=== PATIENT | female | born 1985 | race Caucasian/White ===

== ENCOUNTER 2022-10-16 15:24 | Observation (INO) ==
[2022-10-16 16:19] LABS: Basophils # (auto) 0.04 K/uL (0-0.2); Basophils % (auto) 0.5 %; Eosinophils # (auto) 0.16 K/uL (0-0.50); Eosinophils % (auto) 2.2 %; Hematocrit (blood only) 34.5 % (34.1-44.9); Hemoglobin 12.2 g/dl (12.0-16.0); Immature Granulocytes # (auto) 0.02 K/uL (0.00-0.02); Immature Granulocytes % (auto) 0.3 %; Lymphocytes # (auto) 2.05 K/uL (1.2-3.4); Lymphocytes % (auto) 28.1 %; Mean Corpuscular Hemoglobin 29.6 pg (25.0-34.0); Mean Corpuscular Hgb Conc 35.4 g/dL (32.0-36.0); Mean Corpuscular Volume 83.7 fL (80.0-100.0); Mean Platelet Volume 9.9 fL (9.4-12.3); Monocytes # (auto) 0.26 K/uL (0.24-0.82); Monocytes % (auto) 3.6 %; Neutrophils # (auto) 4.77 K/uL (1.4-6.5); Neutrophils % (auto) 65.3 %; Platelet Count 270 K/uL (130-400); RDW Coefficient of Variation 11.9 % (11.5-14.5); RDW Standard Deviation 35.8 fL (36.4-46.3); Red Blood Count 4.12 M/uL (3.93-5.22)
[2022-10-16] MEDS ORDERED: KETOROLAC TROMETHAMINE 15 MG/ML VIAL IV ONE (16:19)
[2022-10-16] MEDS ORDERED: SODIUM CHLORIDE 0.9% 1000ML 2,000 ML IV ONE (16:19)
--- NOTE | 2022-10-16 16:24 | Emergency Department Note ---
Impression & Plan Chest pain, Elevated troponin, Abnormal ECG ED Provider Note NAME: BEL RIVERS AGE: 37 SEX: F : 1985 ARRIVES VIA: Walk-In INFORMANT: Patient ED PROVIDER(S): Bo Kaufman DO CHIEF COMPLAINT: Chest pain HPI: Patient is a 37-year-old female who presents the ER for chest pain which started about an hour and a half ago. She describes as midsternal and goes through to the back. She does have some arm pain. No shortness of breath. No belly pain, nausea, vomiting, or diarrhea. No dysuria, urgency, or frequency. No other exacerbating or remitting factors. She notes a feeling of fullness and sharp stabbing pressure. Does not change with twisting turning bending or eating or drinking. No other exacerbating or remitting factors. Patient denies diabetes, hypertension, hyperlipidemia, CAD, history of sudden at a young age, and smoking. Patient denies swelling of calves, recent trips, history of immobilization or recent surgery, prior history of DVT, hemoptysis, history of malignancy, or control/estrogen use. ROS: See above HPI for pertinent positives & negatives. A total of 10 systems reviewed and were otherwise negative. PAST MEDICAL HISTORY:See Below PAST SURGICAL HISTORY:See Below FAMILY HISTORY:See Below SOCIAL HISTORY:See Below HOME MEDICATIONS:See Below ALLERGIES:See Below VITALS:See Below PHYSICAL EXAMINATION: GENERAL: Sitting up in bed, alert, well appearing, well nourished, no distress, non-toxic EYE EXAM: normal conjunctiva. PERRL and EOM's grossly intact. OROPHARYNX: no exudate, no erythema, lips, buccal mucosa, and tongue normal and mucous membranes are moist NECK: supple, no nuchal rigidity, no adenopathy, non-tender LUNGS: Clear to auscultation. Normal chest wall mechanics HEART: no murmurs, S1 normal and S2 normal ABDOMEN: abdomen soft, non-tender, normo-active bowel sounds, no masses, no keerthi ound or guarding. BACK: Back is symmetrical on inspection and there is no deformity, no midline tenderness, no CVA tenderness. SKIN: no rashes and no bruising UPPER EXTREMITIES: upper extremities are grossly normal. Radial pulses are equal bilateral LOWER EXTREMITIES: No pitting edema. Calves are equal bilateral NEURO EXAM: Normal sensorium, cranial nerves II-XII grossly intact, normal speech, no gross weakness of arms, no gross weakness of legs. MEDICAL DECISION MAKING: Patient is a 37-year-old female who presents ER for above-stated complaint. IV was established blood work was obtained. Labs show no significant leukocytosis or anemia. Sed rate was normal. INR unremarkable. D-dimer was negative. BMP with mild hypokalemia 3.2. BMP with LFTs bilirubin was unremarkable. Troponin was elevated at 44. CRP negative. Viral panel was negative. EKG shows ST wave changes. Question if this is a myopericarditis but cannot be certain. She has no other cardiac risk factors with exception of a family member having an DE in his 50s which was her father. Patient was pain-free following given Toradol and then had some left shoulder pain. Attempted nitro without change. Patient was admitted to [facility] for further evaluation. We will hold on heparin at this time as I do not feel that this is consistent with ACS/with her age, risk factors and resolution of the pain at this point. Discussed with Pt concerning signs and symptoms to watch out for. Pt was instructed to follow up with their PCP and discussed with the patient their option to return to the ED at anytime for persistent or worsening symptoms. The appropriate anticipatory guidance and out-patient management, including indications for return to the emergency department, were explained at length to the patient and understood. Triage Nursing notes reviewed. Limited review of prior medical records performed Vital Signs: reviewed and remarkable for no significant abnormalities Differential diagnosis: Cardiac ischemia, aortic dissection, pulmonary embolism, pneumothorax, pneumonia, pericarditis, myocarditis, esophageal rupture, GERD, cholecystitis, pancreatitis, musculoskeletal, as well as other pathologies. ER treatment provided: See below Diagnostics interpreted by me: ECG: Sinus tachycardia rate of 108 ST depressions in the inferior leads as well as the anterior lateral leads QTC 436 Cardiac Monitoring: An order was placed for continuous cardiac monitoring. The monitor shows a rate of 101 with sinus rhythm. Laboratory studies: As stated above and show below. 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 Verified 12/09/20 07:47 Home Meds Home Medications Medication Instructions Recorded Confirmed acetaminophen 500 mg capsule 500 mg PO DAILY 10/16/22 10/16/22 calcium carbonate 500 mg calcium 500 mg PO HS PRN Dyspepsia 10/16/22 10/16/22 (1,250 mg) chewable tablet ibuprofen 200 mg tablet (Advil) 200 mg PO DAILY 10/16/22 10/16/22 Results & Data (ED) Vital Signs Vital Signs - 24 hr 10/16/22 15:28 10/16/22 16:59 Temperature 36.7 C Temperature Source Temporal Artery Scan Pulse Rate 97 H Respiratory Rate 18 Respiratory Effort / Characteristics Non-Labored Respiratory Depth Normal Blood Pressure 129/69 Blood Pressure Mean 89 Blood Pressure Position Sitting Pulse Oximetry 99 Oxygen Delivery Method Room Air Room Air Sepsis Recent Fever Within 48 Hours No Sepsis New/Unexplained Change in Mental Status No Sepsis Action Taken by Nursing No Action Required Laboratory Data Result diagrams: 10/16/22 15:54 10/16/22 15:54 Lab Results 10/16/22 10/16/22 10/16/22 Range/Units 15:45 15:54 15:54 WBC 7.30 (4.8-10.8) K/ul RBC 4.12 (3.93-5.22) M/uL Hgb 12.2 (12.0-16.0) g/dl Hct 34.5 (34.1-44.9) % MCV 83.7 (80.0-100.0) fL MCH 29.6 (25.0-34.0) pg MCHC 35.4 (32.0-36.0) g/dL RDW Std Deviation 35.8 L (36.4-46.3) fL RDW Coeff of Andre 11.9 (11.5-14.5) % Plt Count 270 (130-400) K/uL MPV 9.9 (9.4-12.3) fL Immature Gran % (Auto) 0.3 % Neut % (Auto) 65.3 % Lymph % (Auto) 28.1 % [place] % (Auto) 3.6 % Eos % (Auto) 2.2 % Baso % (Auto) 0.5 % Neut # (Auto) 4.77 (1.4-6.5) K/uL Lymph # (Auto) 2.05 (1.2-3.4) K/uL [place] # (Auto) 0.26 (0.24-0.82) K/uL Eos # (Auto) 0.16 (0-0.50) K/uL Baso # (Auto) 0.04 (0-0.2) K/uL Immature Gran # (Auto) 0.02 (0.00-0.02) K/uL ESR (0-20) mm/hr PT 12.0 (9.0-12.0) Seconds INR 1.1 (0.9-1.1) APTT 26.2 (21.0-31.0) Seconds PTT Ratio 1.0 D-Dimer 230 (0-500) ug/L FEU Sodium (136-145) mmol/L Potassium (3.5-5.1) mmol/L Chloride (98-107) mmol/L Carbon Dioxide (21-32) mmol/L Anion Gap (3-11) BUN (6-23) mg/dl Creatinine (0.6-1.2) mg/dl Est Cr Clr Drug Dosing Est GFR ( Amer) ml/min Est GFR (Non-Af Amer) ml/min BUN/Creatinine Ratio (10-20) Glucose (70-99(Fasting)) mg/dl Calcium (8.5-10.1) mg/dl Magnesium (1.7-2.4) mg/dl Total Bilirubin (0.2-1.0) mg/dl AST (13-39) U/L ALT (7-52) U/L Alkaline Phosphatase (34-104) U/L Troponin I High Sens (0-14) pg/ml C-Reactive Protein < 0.50 (0-0.5) mg/dl Total Protein (6.0-8.3) gm/dl Albumin (3.4-5.0) gm/dl Globulin (2.5-4.0) gm/dl Albumin/Globulin Ratio (0.9-2) 10/16/22 10/16/22 10/16/22 Range/Units 15:54 15:54 15:54 WBC (4.8-10.8) K/ul RBC (3.93-5.22) M/uL Hgb (12.0-16.0) g/dl Hct (34.1-44.9) % MCV (80.0-100.0) fL MCH (25.0-34.0) pg MCHC (32.0-36.0) g/dL RDW Std Deviation (36.4-46.3) fL RDW Coeff of Andre (11.5-14.5) % Plt Count (130-400) K/uL MPV (9.4-12.3) fL Immature Gran % (Auto) % Neut % (Auto) % Lymph % (Auto) % [place] % (Auto) % Eos % (Auto) % Baso % (Auto) % Neut # (Auto) (1.4-6.5) K/uL Lymph # (Auto) (1.2-3.4) K/uL [place] # (Auto) (0.24-0.82) K/uL Eos # (Auto) (0-0.50) K/uL Baso # (Auto) (0-0.2) K/uL Immature Gran # (Auto) (0.00-0.02) K/uL ESR 7 (0-20) mm/hr PT (9.0-12.0) Seconds INR (0.9-1.1) APTT (21.0-31.0) Seconds PTT Ratio D-Dimer (0-500) ug/L FEU Sodium 136 (136-145) mmol/L Potassium 3.2 L (3.5-5.1) mmol/L Chloride 103 (98-107) mmol/L Carbon Dioxide 22 (21-32) mmol/L Anion Gap 11 (3-11) BUN 8 (6-23) mg/dl Creatinine 0.62 (0.6-1.2) mg/dl Est Cr Clr Drug Dosing Not Reportable Est GFR ( Amer) 135.4 ml/min Est GFR (Non-Af Amer) 116.8 ml/min BUN/Creatinine Ratio 12.9 (10-20) Glucose 158 H (70-99(Fasting)) mg/dl Calcium 9.6 (8.5-10.1) mg/dl Magnesium 1.9 (1.7-2.4) mg/dl Total Bilirubin 0.6 (0.2-1.0) mg/dl AST 14 (13-39) U/L ALT 9 (7-52) U/L Alkaline Phosphatase 32 L (34-104) U/L Troponin I High Sens 44.1 H (0-14) pg/ml C-Reactive Protein (0-0.5) mg/dl Total Protein 7.4 (6.0-8.3) gm/dl Albumin 4.7 (3.4-5.0) gm/dl Globulin 2.7 (2.5-4.0) gm/dl Albumin/Globulin Ratio 1.7 (0.9-2) Administered Medications Discontinued Medications Aspirin (Aspirin Chew 324 Mg) 324 mg PO NOW STA Stop: 10/16/22 17:36 Last Admin: 10/16/22 18:03 Dose: 324 mg Documented By: DEVORA Sodium Chloride (Nss 1000ml) 2,000 mls @ 999 mls/hr IV .Q2H1M ONE Stop: 10/16/22 18:19 Last Infusion: 10/16/22 22:01 Dose: 0 mls/hr Documented By: Admin: 10/16/22 16:59 Dose: 999 mls/hr Documented By: DEVORA Ketorolac Tromethamine (Ketorolac Tromethamine 15 Mg/Ml Vial) 15 mg IV NOW ONE Stop: 10/16/22 16:20 Last Admin: 10/16/22 16:58 Dose: 15 mg Documented By: DEVORA Nitroglycerin (Nitroglycerin Sl 0.4 Mg/Tab Tab) 0.4 mg SL NOW STA Stop: 10/16/22 17:36 Last Admin: 10/16/22 18:02 Dose: 0.4 mg Documented By: DEVORA Potassium Chloride (Potassium Chloride Crtab 20 Meq Tabcr) 40 meq PO NOW STA Stop: 10/16/22 17:36 Last Admin: 10/16/22 18:46 Dose: 40 meq Documented By: DEVORA Imaging Data Radiologist's Impression: Chest X-Ray 10/16/22 15:31 XR chest 2V PA/lateral CLINICAL HISTORY: Chest pain, nonspecific TECHNIQUE: 2 views of the chest were obtained. Comparison: None available at the time of this dictation. FINDINGS: No lines and tubes are seen. The cardiomediastinal silhouette is normal. The lungs are clear. No evidence of pleural effusion or pneumothorax. IMPRESSION: No acute chest disease. ACT 112: Negative or not required by law. Electronically signed by: Gustavo Barraza M.D. 10/16/2022 6:07 PM Discharge Plan Visit Data Chief Complaint: Chest Pain Stated Complaint: CHEST PAIN, NUMB ARM, DIZZY ED Provider: Bo Kaufman Discharge Problem: Chest pain, Elevated troponin, Abnormal ECG Patient Disposition: Admitted As Inpatient Discharge Instructions Interventions: ED Discharge Assessment Last Done: 10/16/22 21:04
[2022-10-16 16:30] LABS: INR 1.1 (0.9-1.1); Partial Thromboplastin Time 26.2 Seconds (21.0-31.0)
[2022-10-16 16:42] LABS: Alanine Aminotransferase 9 U/L (7-52); Albumin Globulin Ratio 1.7 (0.9-2); Albumin Level 4.7 gm/dl (3.4-5.0); Alkaline Phosphatase 32 U/L (34-104); Anion Gap 11 (3-11); Aspartate Aminotransferase 14 U/L (13-39); BUN Creatinine Ratio 12.9 (10-20); Bilirubin,Total 0.6 mg/dl (0.2-1.0); Blood Urea Nitrogen 8 mg/dl (6-23); Calcium 9.6 mg/dl (8.5-10.1); Carbon Dioxide 22 mmol/L (21-32); Chloride 103 mmol/L (98-107); Est GFR (African American) 135.4 ml/min; Est GFR (Non-African American) 116.8 ml/min; Globulin 2.7 gm/dl (2.5-4.0); Glucose 158 mg/dl (70-99(Fasting)); Potassium 3.2 mmol/L (3.5-5.1); Sodium 136 mmol/L (136-145); Total Protein 7.4 gm/dl (6.0-8.3)
[2022-10-16 16:45] LABS: Troponin I High Sensitivity 44.1 pg/ml (0-14)
[2022-10-16 16:51] LABS: D Dimer 230 ug/L FEU (0-500)
[2022-10-16] MEDS ORDERED: POTASSIUM CHLORIDE CRTAB 20 MEQ TABCR PO STA (17:35)
[2022-10-16] MEDS ORDERED: NITROGLYCERIN SL 0.4 MG/TAB TAB SL STA (17:35)
[2022-10-16] MEDS ORDERED: ASPIRIN CHEW 324 MG PO STA (17:35)
--- NOTE | 2022-10-16 18:10 | XRay Report ---
XR chest 2V PA/lateral CLINICAL HISTORY: Chest pain, nonspecific TECHNIQUE: 2 views of the chest were obtained. Comparison: None available at the time of this dictation. FINDINGS: No lines and tubes are seen. The cardiomediastinal silhouette is normal. The lungs are clear. No evid ence of pleural effusion or pneumothorax. IMPRESSION: No acute chest disease. ACT 112: Negative or not required by law. Electronically signed by: Gustavo Barraza M.D. 10/16/2022 6:07 PM
--- NOTE | 2022-10-16 19:10 | History & Physical Report ---
Date of Service October 16, 2022 Assessment & Plan (1) Chest pain: Plan: Patient presents with sudden onset of chest pain, radiating to her left arm Troponin elevated at 44, EKG showing sinus tachycardia, and ST depressions Chest pain somewhat improved after Toradol and fluids given in the ED However radiation to left arm seems somewhat worse Denies any sick contacts, or any respiratory symptoms Will closely monitor on telemetry We will trend troponin ACS unlikely given young female with no known risk factors Possible pericarditis/myocarditis? Will obtain ESR, CRP Will obtain bio fire, coxsackievirus We will continue Tylenol, ibuprofen for now (if results of above work -up c/w above diagnosis , will likely add colchicine) Will obtain echocardiogram and will further discuss with cardiology Functional neurological symptom disorder/left-sided weakness on and off -Patient reports having symptoms for past 4 years -Able to do ADLs, however usually not able to do strenuous activity -Follows with neurology, Dr. Cedeño -Recently MRI studies obtained History of Present Illness Chief Complaint: chest pain Primary Care Provider: Bran Vuong MD 37-year-old female with history of migraine, functional neurological disorder/left-sided weakness, history of palpitations during , who now presents with chest pain and worsening left arm weakness and pain. Patient reports that she has left-sided weakness on and off, having "some good days, and some bad days". Reports she has had this for past 4 years. Per chart review, she is being evaluated by neurology, Dr. Cedeño. She says that she had a good day on , she was at home, with her children wrapping Melvi presents. Then yesterday she was at work half a day, did not have a very good day, felt tired, went to bed early. This morning she reports feeling well after waking up. Says she drove a short distance to her [id number] and at that time felt fine. However soon into the visit she started to experience chest pain, and worsening left arm weakness and pain. She reports laying on the floor, playing with a small dog, and denies any strenuous activity whatsoever. Reports chest pain was significant, and she could not move for about 15 minutes while laying on the floor. Denies any previous history of chest pains. Reports her left-sided weakness/pain got worse. After coming to the ED, patient reports her chest pain is improved however she continues to feel shoulder pain, which seems to be worse now. Says she had some shortness of breath. No nausea or vomiting. 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 Denies any fevers chills cough or any other respiratory symptoms. Denies abdominal pain diarrhea constipation. Patient's is present at bedside. In the ED, troponin was found elevated at 44. D-dimer was not elevated. Some ST depressions noted on ECG, and Sinus tachycardia. Allergies Allergy/AdvReac Type Severity Reaction Status Date / Time egg Allergy Severe ANAPHYLAXIS Verified 12/09/20 07:47 Penicillins Allergy Intermediate . Verified 12/09/20 07:47 Home Medications Medication Instructions Recorded Confirmed Type acetaminophen 500 mg capsule 500 mg PO DAILY 10/16/22 10/16/22 History calcium carbonate 500 mg calcium 500 mg PO HS PRN Dyspepsia 10/16/22 10/16/22 History (1,250 mg) chewable tablet ibuprofen 200 mg tablet (Advil) 200 mg PO DAILY 10/16/22 10/16/22 History Past Med/Surg History Medical History (Updated 10/16/22 @ 19:15 by Reji Riley MD) Functional neurological symptom disorder (conversion disorder), with abnormal movement Migraine Sjogren syndrome with keratoconjunctivitis Family History (Updated 10/16/22 @ 18:55 by Reji Riley MD) Father Heart disease Social History Smoking Status: Never smoker Hx Alcohol Use: No Hx Substance Use: No Preferred Language: German Communication Ability: Effective Manager People Required: No Beliefs That Will Affect Care: None Current Living Situation: Spouse and Family Feels Safe at Home: Yes Review of Systems Review of Systems: All systems reviewed & are unremarkable except as noted in Subjective Physical Exam Constitutional: WD/WN, vitals as above Eyes: PERRL, conjunctivae normal, anicteric sclerae ENMT: external ear and nose normal, oropharynx normal Neck: trachea midline, no thyromegaly Respiratory: normal respiratory effort, lungs clear to auscultation Cardiovascular: Rate/Rhythm: + tachycardic (HR low 100s) Chest (Breasts): Chest: normal inspection of chest Gastrointestinal (Abdomen): normal bowel sounds, soft, nontender, no hepatosplenomegaly Musculoskeletal: Patient moves extremities. Tremor when testing leg strength. Tremor however resolved shortly afterward. Skin: no rashes, warm and dry Neurologic: PERRL, EOMI, accommodation nl, no face palsy, no dysarthria Genitourinary: no CVA tenderness Lymphatic: no LE edema Results & Data Results & Data ([facility]) Vital Signs (Past 12 Hours) Vital Signs Temp Pulse Resp BP Pulse Ox O2 Del Method 10/16/22 16:59 Room Air 10/16/22 15:28 36.7 C 97 H 18 129/69 99 Room Air Laboratory Results 10/16/22 10/16/22 10/16/22 Range/Units 18:38 15:54 15:54 WBC (4.8-10.8) K/ul RBC (3.93-5.22) M/uL Hgb (12.0-16.0) g/dl Hct (34.1-44.9) % MCV (80.0-100.0) fL MCH (25.0-34.0) pg MCHC (32.0-36.0) g/dL RDW Std Deviation (36.4-46.3) fL RDW Coeff of Andre (11.5-14.5) % Plt Count (130-400) K/uL MPV (9.4-12.3) fL Immature Gran % (Auto) % Neut % (Auto) % Lymph % (Auto) % [place] % (Auto) % Eos % (Auto) % Baso % (Auto) % Neut # (Auto) (1.4-6.5) K/uL Lymph # (Auto) (1.2-3.4) K/uL [place] # (Auto) (0.24-0.82) K/uL Eos # (Auto) (0-0.50) K/uL Baso # (Auto) (0-0.2) K/uL Immature Gran # (Auto) (0.00-0.02) K/uL ESR 7 (0-20) mm/hr PT (9.0-12.0) Seconds INR (0.9-1.1) APTT (21.0-31.0) Seconds PTT Ratio D-Dimer (0-500) ug/L FEU Sodium 136 (136-145) mmol/L Potassium 3.2 L (3.5-5.1) mmol/L Chloride 103 (98-107) mmol/L Carbon Dioxide 22 (21-32) mmol/L Anion Gap 11 (3-11) BUN 8 (6-23) mg/dl Creatinine 0.62 (0.6-1.2) mg/dl Est Cr Clr Drug Dosing Not Reportable Est GFR ( Amer) 135.4 ml/min Est GFR (Non-Af Amer) 116.8 ml/min BUN/Creatinine Ratio 12.9 (10-20) Glucose 158 H (70-99(Fasting)) mg/dl Calcium 9.6 (8.5-10.1) mg/dl Total Bilirubin 0.6 (0.2-1.0) mg/dl AST 14 (13-39) U/L ALT 9 (7-52) U/L Alkaline Phosphatase 32 L (34-104) U/L Troponin I High Sens 44.1 H (0-14) pg/ml C-Reactive Protein (0-0.5) mg/dl Total Protein 7.4 (6.0-8.3) gm/dl Albumin 4.7 (3.4-5.0) gm/dl Globulin 2.7 (2.5-4.0) gm/dl Albumin/Globulin Ratio 1.7 (0.9-2) Adenovirus (PCR) Pending B. pertussis DNA (PCR) Pending B.parapertussis DNA PCR Pending C. pneumoniae DNA (PCR) Pending Coronavirus OC43 (PCR) Pending Coronavirus HKU1 (PCR) Pending Coronavirus 229E (PCR) Pending SARS-CoV-2 (PCR) Pending Coronavirus NL63 (PCR) Pending Human Metapneumovir PCR Pending Influenza Type B (PCR) Pending M. pneumoniae (PCR) Pending Parainfluenza 1 (PCR) Pending Parainfluenza 2 (PCR) Pending Parainfluenza 3 (PCR) Pending Parainfluenza 4 (PCR) Pending RSV (PCR) Pending Entero/Rhino (PCR) Pending 10/16/22 10/16/22 10/16/22 Range/Units 15:54 15:54 15:45 WBC 7.30 (4.8-10.8) K/ul RBC 4.12 (3.93-5.22) M/uL Hgb 12.2 (12.0-16.0) g/dl Hct 34.5 (34.1-44.9) % MCV 83.7 (80.0-100.0) fL MCH 29.6 (25.0-34.0) pg MCHC 35.4 (32.0-36.0) g/dL RDW Std Deviation 35.8 L (36.4-46.3) fL RDW Coeff of Andre 11.9 (11.5-14.5) % Plt Count 270 (130-400) K/uL MPV 9.9 (9.4-12.3) fL Immature Gran % (Auto) 0.3 % Neut % (Auto) 65.3 % Lymph % (Auto) 28.1 % [place] % (Auto) 3.6 % Eos % (Auto) 2.2 % Baso % (Auto) 0.5 % Neut # (Auto) 4.77 (1.4-6.5) K/uL Lymph # (Auto) 2.05 (1.2-3.4) K/uL [place] # (Auto) 0.26 (0.24-0.82) K/uL Eos # (Auto) 0.16 (0-0.50) K/uL Baso # (Auto) 0.04 (0-0.2) K/uL Immature Gran # (Auto) 0.02 (0.00-0.02) K/uL ESR (0-20) mm/hr PT 12.0 (9.0-12.0) Seconds INR 1.1 (0.9-1.1) APTT 26.2 (21.0-31.0) Seconds PTT Ratio 1.0 D-Dimer 230 (0-500) ug/L FEU Sodium (136-145) mmol/L Potassium (3.5-5.1) mmol/L Chloride (98-107) mmol/L Carbon Dioxide (21-32) mmol/L Anion Gap (3-11) BUN (6-23) mg/dl Creatinine (0.6-1.2) mg/dl Est Cr Clr Drug Dosing Est GFR ( Amer) ml/min Est GFR (Non-Af Amer) ml/min BUN/Creatinine Ratio (10-20) Glucose (70-99(Fasting)) mg/dl Calcium (8.5-10.1) mg/dl Total Bilirubin (0.2-1.0) mg/dl AST (13-39) U/L ALT (7-52) U/L Alkaline Phosphatase (34-104) U/L Troponin I High Sens (0-14) pg/ml C-Reactive Protein < 0.50 (0-0.5) mg/dl Total Protein (6.0-8.3) gm/dl Albumin (3.4-5.0) gm/dl Globulin (2.5-4.0) gm/dl Albumin/Globulin Ratio (0.9-2) Adenovirus (PCR) B. pertussis DNA (PCR) B.parapertussis DNA PCR C. pneumoniae DNA (PCR) Coronavirus OC43 (PCR) Coronavirus HKU1 (PCR) Coronavirus 229E (PCR) SARS-CoV-2 (PCR) Coronavirus NL63 (PCR) Human Metapneumovir PCR Influenza Type B (PCR) M. pneumoniae (PCR) Parainfluenza 1 (PCR) Parainfluenza 2 (PCR) Parainfluenza 3 (PCR) Parainfluenza 4 (PCR) RSV (PCR) Entero/Rhino (PCR) Diagnostic Findings CXR FINDINGS: No lines and tubes are seen. The cardiomediastinal silhouette is normal. The lungs are clear. No evidence of pleural effusion or pneumothorax. IMPRESSION: No acute chest disease. Code Status & VTE Plan VTE Prophylaxis Plan VTE Prophylaxis will be ordered: Yes
[2022-10-16 19:44] LABS: Adenovirus PCR Not Detected (NotDetected); Bordetella parapertussis PCR Not Detected (NotDetected); Bordetella pertussis PCR Not Detected (NotDetected); Chlamydia pneumoniae PCR Not Detected (NotDetected); Coronavirus 229E PCR Not Detected (NotDetected); Coronavirus CoV-2 (COVID19)PCR Not Detected (NotDetected); Coronavirus HKU1 PCR Not Detected (NotDetected); Coronavirus NL63 PCR Not Detected (NotDetected); Coronavirus OC43PCR Not Detected (NotDetected); Human Metapneumovirus PCR Not Detected (NotDetected); Influenza A PCR Not Detected (NotDetected); Influenza B PCR Not Detected (NotDetected); Mycoplasma pneumoniae PCR Not Detected (NotDetected); Parainfluenza Virus 1 PCR Not Detected (NotDetected); Parainfluenza Virus 2 PCR Not Detected (NotDetected); Parainfluenza Virus 3 PCR Not Detected (NotDetected); Parainfluenza Virus 4 PCR Not Detected (NotDetected); Respiratory Syncytial VirusPCR Not Detected (NotDetected); Rhinovirus/Enterovirus PCR Not Detected (NotDetected)
[2022-10-16] MEDS ORDERED: HEPARIN SOD 5,000 UNIT/0.5 ML VIAL SQ SCH (21:00)
[2022-10-16] MEDS ORDERED: IBUPROFEN 600 MG TAB PO SCH (22:00)
[2022-10-17] MEDS ORDERED: MoRPHine SULFATE 2 MG/ML CARP IV STA (00:41)
[2022-10-17] MEDS ORDERED: Heparin IV Adult Wt-Based Low-Dose *NO* Bolus Protocol IV SCH (00:41)
[2022-10-17] MEDS ORDERED: HEPARIN SODIUM/DEXTROSE 25,000 UNITS/500 ML BAG IV SCH ×2 (00:45→01:45)
[2022-10-17] MEDS ORDERED: Heparin IV Adult Wt-Based Standard *NO* Bolus Protocol IV SCH (01:21)
[2022-10-17] MEDS ORDERED: NITROGLYCERIN SL 0.4 MG/TAB TAB SL STA (01:21)
[2022-10-17 03:30] LABS: Basophils # (auto) 0.03 K/uL (0-0.2); Basophils % (auto) 0.4 %; Eosinophils # (auto) 0.11 K/uL (0-0.50); Eosinophils % (auto) 1.6 %; Hematocrit (blood only) 32.4 % (34.1-44.9); Hemoglobin 11.4 g/dl (12.0-16.0); Immature Granulocytes # (auto) 0.03 K/uL (0.00-0.02); Immature Granulocytes % (auto) 0.4 %; Lymphocytes # (auto) 2.22 K/uL (1.2-3.4); Lymphocytes % (auto) 31.4 %; Mean Corpuscular Hemoglobin 29.2 pg (25.0-34.0); Mean Corpuscular Hgb Conc 35.2 g/dL (32.0-36.0); Mean Corpuscular Volume 83.1 fL (80.0-100.0); Mean Platelet Volume 9.4 fL (9.4-12.3); Monocytes # (auto) 0.28 K/uL (0.24-0.82); Neutrophils # (auto) 4.41 K/uL (1.4-6.5); Neutrophils % (auto) 62.2 %; Platelet Count 216 K/uL (130-400); RDW Coefficient of Variation 11.9 % (11.5-14.5); RDW Standard Deviation 35.9 fL (36.4-46.3); White Blood Count 7.08 K/ul (4.8-10.8)
[2022-10-17 03:41] LABS: INR 1.1 (0.9-1.1); Partial Thromboplastin Ratio 1.1; Partial Thromboplastin Time 29.4 Seconds (21.0-31.0); Prothrombin Time 11.8 Seconds (9.0-12.0)
[2022-10-17 04:18] LABS: Anion Gap 9 (3-11); BUN Creatinine Ratio 14.9 (10-20); Blood Urea Nitrogen 7 mg/dl (6-23); C Reactive Protein < 0.50 mg/dl (0-0.5); Calcium 8.7 mg/dl (8.5-10.1); Carbon Dioxide 22 mmol/L (21-32); Chloride 110 mmol/L (98-107); Creatinine Clr Calc Pharmacy 132.1 ml/min; Est GFR (African American) 148.3 ml/min; Glucose 93 mg/dl (70-99(Fasting)); Magnesium 2.1 mg/dl (1.7-2.4); Phosphorus 3.4 mg/dl (2.5-4.9); Potassium 3.5 mmol/L (3.5-5.1); Sodium 141 mmol/L (136-145)
--- NOTE | 2022-10-17 07:20 | Hospitalist Progress Note ---
Date of Service October 17, 2022 Assessment & Plan (1) Chest pain: Plan: Patient presents with sudden onset of chest pain, radiating to her left arm Troponin elevated at 44, EKG showing sinus tachycardia, and ST depressions Chest pain somewhat improved after Toradol and fluids given in the ED However radiation to left arm was somewhat worse Denies any sick contacts, or any respiratory symptoms Overnight troponin elevated to 495. Patient was started on IV heparin by return clerk. monitored on telemetry ACS unlikely given young female with no known risk factors Possible pericarditis/myocarditis? ESR, CRP obtained and negative bio fire - negative, coxsackievirus - pending echocardiogram obtained and cardiology consulted Echo -LV is normal in size there is normal LV wall motion and thickness. LV systolic function is normal. No segmental left ventricular wall motion abnormalities are noted. EF 60 to 65%. The LV wall motion is normal. 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 Cedeño -Recently MRI studies obtained - cont. to follow as outpt Admission and Anticipated Discharge Date Admission Date: October 16, 2022 Subjective Pt seen in follow up of chest pain Overnight troponin elevated at 495, IV heparin started by the return clerk Currently she is sitting up in bed, in no acute distress. She reports some chest tightness, however overall comfortable. Noted left calf pain this AM and so Doppler was obtained, negative for DVT No shortness of breath no diaphoresis no palpitations. No dizziness no lightheadedness No fevers chills No abdominal pain nausea vomiting Cardiology consulted Review of Systems Review of Systems: All systems reviewed & are unremarkable except as noted in Subjective Physical Exam Physical Exam: Constitutional:L WD/WN, in NAD Eyes: PERRL, EOMI ENMT: external ear and n ose normal, oropha rynx normal Neck: supple Respiratory: normal respiratory effort, lungs nickolas ar to auscultation Cardiovascular:L RRR Chest (Breasts): Chest: normal insp ection of chest Gastrointestinal ( Abdomen): normal bowel sound s, soft, nontender Musculoskeletal: Patient moves extr emities. No weakn ess noted. Skin: no rashes, warm an d dry Neurologic: PERRL, EOMI, no fa ce palsy, no dysar thria, moves extre mities Genitourinary: no CVA tenderness Lymphatic: no LE edema Results & Data Results & Data ([facility]) Vital Signs (Past 12 Hours) Vital Signs Temp Pulse Pulse Resp BP Pulse Ox Pulse Ox 10/16/22 21:48 99 10/17/22 03:25 37.1 C 76 20 119/78 97 10/16/22 22:00 10/17/22 02:00 95 H 10/17/22 00:18 37.2 C 75 18 132/84 99 10/16/22 21:51 36.5 C 75 18 133/83 99 10/16/22 21:48 36.5 C 75 18 133/83 99 10/16/22 21:04 82 20 O2 Del Method O2 Del Method 10/16/22 21:48 Room Air 10/17/22 03:25 Room Air 10/16/22 22:00 Room Air 10/17/22 02:00 10/17/22 00:18 Room Air 10/16/22 21:51 Room Air 10/16/22 21:48 Room Air 10/16/22 21:04 Room Air Laboratory Results 10/17/22 10/17/22 10/17/22 Range/Units 03:14 03:14 03:14 WBC (4.8-10.8) K/ul RBC (3.93-5.22) M/uL Hgb (12.0-16.0) g/dl Hct (34.1-44.9) % MCV (80.0-100.0) fL MCH (25.0-34.0) pg MCHC (32.0-36.0) g/dL RDW Std Deviation (36.4-46.3) fL RDW Coeff of Andre (11.5-14.5) % Plt Count (130-400) K/uL MPV (9.4-12.3) fL Immature Gran % (Auto) % Neut % (Auto) % Lymph % (Auto) % Bollinger % (Auto) % Eos % (Auto) % Baso % (Auto) % Neut # (Auto) (1.4-6.5) K/uL Lymph # (Auto) (1.2-3.4) K/uL Bollinger # (Auto) (0.24-0.82) K/uL Eos # (Auto) (0-0.50) K/uL Baso # (Auto) (0-0.2) K/uL Immature Gran # (Auto) (0.00-0.02) K/uL ESR 3 (0-20) mm/hr PT 11.8 (9.0-12.0) Seconds INR 1.1 (0.9-1.1) APTT 29.4 (21.0-31.0) Seconds PTT Ratio 1.1 D-Dimer (0-500) ug/L FEU Sodium (136-145) mmol/L Potassium (3.5-5.1) mmol/L Chloride (98-107) mmol/L Carbon Dioxide (21-32) mmol/L Anion Gap (3-11) BUN (6-23) mg/dl Creatinine (0.6-1.2) mg/dl Est Cr Clr Drug Dosing Est GFR ( Amer) ml/min Est GFR (Non-Af Amer) ml/min BUN/Creatinine Ratio (10-20) Glucose (70-99(Fasting)) mg/dl Calcium (8.5-10.1) mg/dl Phosphorus (2.5-4.9) mg/dl Magnesium (1.7-2.4) mg/dl Total Bilirubin (0.2-1.0) mg/dl AST (13-39) U/L ALT (7-52) U/L Alkaline Phosphatase (34-104) U/L Total Creatine Kinase 58 (26-192) U/L Troponin I High Sens 424.0 H* (0-14) pg/ml C-Reactive Protein (0-0.5) mg/dl Total Protein (6.0-8.3) gm/dl Albumin (3.4-5.0) gm/dl Globulin (2.5-4.0) gm/dl Albumin/Globulin Ratio (0.9-2) Adenovirus (PCR) (NotDetected) B. pertussis DNA (PCR) (NotDetected) B.parapertussis DNA PCR (NotDetected) C. pneumoniae DNA (PCR) (NotDetected) Coronavirus OC43 (PCR) (NotDetected) Coronavirus HKU1 (PCR) (NotDetected) Coronavirus 229E (PCR) (NotDetected) SARS-CoV-2 (PCR) (NotDetected) Coronavirus NL63 (PCR) (NotDetected) Coxsackie Type A(2) Ab [place]ie Type A(4) Ab [place] Type A(7) Ab [place] Type A(9) Ab [place] Type A(10) Ab [place] Type A(16) Ab [place] Type B(1) Ab [place] Type B(2) Ab [place] Type B(3) Ab [place] Type B(4) Ab [place] Type B(5) Ab [place] Type B(6) Ab Human Metapneumovir PCR (NotDetected) Influenza Type A (PCR) (NotDetected) Influenza Type B (PCR) (NotDetected) M. pneumoniae (PCR) (NotDetected) Parainfluenza 1 (PCR) (NotDetected) Parainfluenza 2 (PCR) (NotDetected) Parainfluenza 3 (PCR) (NotDetected) Parainfluenza 4 (PCR) (NotDetected) RSV (PCR) (NotDetected) Entero/Rhino (PCR) (NotDetected) 10/17/22 10/17/22 10/17/22 Range/Units 03:14 03:14 03:14 WBC 7.08 (4.8-10.8) K/ul RBC 3.90 L (3.93-5.22) M/uL Hgb 11.4 L (12.0-16.0) g/dl Hct 32.4 L (34.1-44.9) % MCV 83.1 (80.0-100.0) fL MCH 29.2 (25.0-34.0) pg MCHC 35.2 (32.0-36.0) g/dL RDW Std Deviation 35.9 L (36.4-46.3) fL RDW Coeff of Andre 11.9 (11.5-14.5) % Plt Count 216 (130-400) K/uL MPV 9.4 (9.4-12.3) fL Immature Gran % (Auto) 0.4 % Neut % (Auto) 62.2 % Lymph % (Auto) 31.4 % Bollinger % (Auto) 4.0 % Eos % (Auto) 1.6 % Baso % (Auto) 0.4 % Neut # (Auto) 4.41 (1.4-6.5) K/uL Lymph # (Auto) 2.22 (1.2-3.4) K/uL Bollinger # (Auto) 0.28 (0.24-0.82) K/uL Eos # (Auto) 0.11 (0-0.50) K/uL Baso # (Auto) 0.03 (0-0.2) K/uL Immature Gran # (Auto) 0.03 H (0.00-0.02) K/uL ESR (0-20) mm/hr PT (9.0-12.0) Seconds INR (0.9-1.1) APTT (21.0-31.0) Seconds PTT Ratio D-Dimer (0-500) ug/L FEU Sodium 141 (136-145) mmol/L Potassium 3.5 (3.5-5.1) mmol/L Chloride 110 H (98-107) mmol/L Carbon Dioxide 22 (21-32) mmol/L Anion Gap 9 (3-11) BUN 7 (6-23) mg/dl Creatinine 0.47 L (0.6-1.2) mg/dl Est Cr Clr Drug Dosing 132.1 Est GFR ( Amer) 148.3 ml/min Est GFR (Non-Af Amer) 128.0 ml/min BUN/Creatinine Ratio 14.9 (10-20) Glucose 93 (70-99(Fasting)) mg/dl Calcium 8.7 (8.5-10.1) mg/dl Phosphorus 3.4 (2.5-4.9) mg/dl Magnesium 2.1 (1.7-2.4) mg/dl Total Bilirubin (0.2-1.0) mg/dl AST (13-39) U/L ALT (7-52) U/L Alkaline Phosphatase (34-104) U/L Total Creatine Kinase (26-192) U/L Troponin I High Sens (0-14) pg/ml C-Reactive Protein < 0.50 (0-0.5) mg/dl Total Protein (6.0-8.3) gm/dl Albumin (3.4-5.0) gm/dl Globulin (2.5-4.0) gm/dl Albumin/Globulin Ratio (0.9-2) Adenovirus (PCR) (NotDetected) B. pertussis DNA (PCR) (NotDetected) B.parapertussis DNA PCR (NotDetected) C. pneumoniae DNA (PCR) (NotDetected) Coronavirus OC43 (PCR) (NotDetected) Coronavirus HKU1 (PCR) (NotDetected) Coronavirus 229E (PCR) (NotDetected) SARS-CoV-2 (PCR) (NotDetected) Coronavirus NL63 (PCR) (NotDetected) Coxsackie Type A(2) Ab Pending Coxsackie Type A(4) Ab Pending Coxsackie Type A(7) Ab Pending [place]sackie Type A(9) Ab Pending [place]ackie Type A(10) Ab Pending [place]sackie Type A(16) Ab Pending [place] Type B(1) Ab Pending [place] Type B(2) Ab Pending [place]ie Type B(3) Ab Pending [place]ie Type B(4) Ab Pending [place] Type B(5) Ab Pending [place] Type B(6) Ab Pending Human Metapneumovir PCR (NotDetected) Influenza Type A (PCR) (NotDetected) Influenza Type B (PCR) (NotDetected) M. pneumoniae (PCR) (NotDetected) Parainfluenza 1 (PCR) (NotDetected) Parainfluenza 2 (PCR) (NotDetected) Parainfluenza 3 (PCR) (NotDetected) Parainfluenza 4 (PCR) (NotDetected) RSV (PCR) (NotDetected) Entero/Rhino (PCR) (NotDetected) 10/16/22 10/16/22 10/16/22 Range/Units 22:58 18:38 15:54 WBC (4.8-10.8) K/ul RBC (3.93-5.22) M/uL Hgb (12.0-16.0) g/dl Hct (34.1-44.9) % MCV (80.0-100.0) fL MCH (25.0-34.0) pg MCHC (32.0-36.0) g/dL RDW Std Deviation (36.4-46.3) fL RDW Coeff of Andre (11.5-14.5) % Plt Count (130-400) K/uL MPV (9.4-12.3) fL Immature Gran % (Auto) % Neut % (Auto) % Lymph % (Auto) % Bollinger % (Auto) % Eos % (Auto) % Baso % (Auto) % Neut # (Auto) (1.4-6.5) K/uL Lymph # (Auto) (1.2-3.4) K/uL Bollinger # (Auto) (0.24-0.82) K/uL Eos # (Auto) (0-0.50) K/uL Baso # (Auto) (0-0.2) K/uL Immature Gran # (Auto) (0.00-0.02) K/uL ESR (0-20) mm/hr PT (9.0-12.0) Seconds INR (0.9-1.1) APTT (21.0-31.0) Seconds PTT Ratio D-Dimer (0-500) ug/L FEU Sodium (136-145) mmol/L Potassium (3.5-5.1) mmol/L Chloride (98-107) mmol/L Carbon Dioxide (21-32) mmol/L Anion Gap (3-11) BUN (6-23) mg/dl Creatinine (0.6-1.2) mg/dl Est Cr Clr Drug Dosing Est GFR ( Amer) ml/min Est GFR (Non-Af Amer) ml/min BUN/Creatinine Ratio (10-20) Glucose (70-99(Fasting)) mg/dl Calcium (8.5-10.1) mg/dl Phosphorus (2.5-4.9) mg/dl Magnesium 1.9 (1.7-2.4) mg/dl Total Bilirubin (0.2-1.0) mg/dl AST (13-39) U/L ALT (7-52) U/L Alkaline Phosphatase (34-104) U/L Total Creatine Kinase (26-192) U/L Troponin I High Sens 495.4 H* D (0-14) pg/ml C-Reactive Protein (0-0.5) mg/dl Total Protein (6.0-8.3) gm/dl Albumin (3.4-5.0) gm/dl Globulin (2.5-4.0) gm/dl Albumin/Globulin Ratio (0.9-2) Adenovirus (PCR) Not Detected (NotDetected) B. pertussis DNA (PCR) Not Detected (NotDetected) B.parapertussis DNA PCR Not Detected (NotDetected) C. pneumoniae DNA (PCR) Not Detected (NotDetected) Coronavirus OC43 (PCR) Not Detected (NotDetected) Coronavirus HKU1 (PCR) Not Detected (NotDetected) Coronavirus 229E (PCR) Not Detected (NotDetected) SARS-CoV-2 (PCR) Not Detected (NotDetected) Coronavirus NL63 (PCR) Not Detected (NotDetected) Coxsackie Type A(2) Ab [place]ie Type A(4) Ab [place] Type A(7) Ab [place] Type A(9) Ab [place] Type A(10) Ab [place] Type A(16) Ab [place] Type B(1) Ab [place] Type B(2) Ab [place] Type B(3) Ab [place] Type B(4) Ab [place] Type B(5) Ab [place] Type B(6) Ab Human Metapneumovir PCR Not Detected (NotDetected) Influenza Type A (PCR) Not Detected (NotDetected) Influenza Type B (PCR) Not Detected (NotDetected) M. pneumoniae (PCR) Not Detected (NotDetected) Parainfluenza 1 (PCR) Not Detected (NotDetected) Parainfluenza 2 (PCR) Not Detected (NotDetected) Parainfluenza 3 (PCR) Not Detected (NotDetected) Parainfluenza 4 (PCR) Not Detected (NotDetected) RSV (PCR) Not Detected (NotDetected) Entero/Rhino (PCR) Not Detected (NotDetected) 10/16/22 10/16/22 10/16/22 Range/Units 15:54 15:54 15:54 WBC (4.8-10.8) K/ul RBC (3.93-5.22) M/uL Hgb (12.0-16.0) g/dl Hct (34.1-44.9) % MCV (80.0-100.0) fL MCH (25.0-34.0) pg MCHC (32.0-36.0) g/dL RDW Std Deviation (36.4-46.3) fL RDW Coeff of Andre (11.5-14.5) % Plt Count (130-400) K/uL MPV (9.4-12.3) fL Immature Gran % (Auto) % Neut % (Auto) % Lymph % (Auto) % Bollinger % (Auto) % Eos % (Auto) % Baso % (Auto) % Neut # (Auto) (1.4-6.5) K/uL Lymph # (Auto) (1.2-3.4) K/uL Bollinger # (Auto) (0.24-0.82) K/uL Eos # (Auto) (0-0.50) K/uL Baso # (Auto) (0-0.2) K/uL Immature Gran # (Auto) (0.00-0.02) K/uL ESR 7 (0-20) mm/hr PT 12.0 (9.0-12.0) Seconds INR 1.1 (0.9-1.1) APTT 26.2 (21.0-31.0) Seconds PTT Ratio 1.0 D-Dimer 230 (0-500) ug/L FEU Sodium 136 (136-145) mmol/L Potassium 3.2 L (3.5-5.1) mmol/L Chloride 103 (98-107) mmol/L Carbon Dioxide 22 (21-32) mmol/L Anion Gap 11 (3-11) BUN 8 (6-23) mg/dl Creatinine 0.62 (0.6-1.2) mg/dl Est Cr Clr Drug Dosing Not Reportable Est GFR ( Amer) 135.4 ml/min Est GFR (Non-Af Amer) 116.8 ml/min BUN/Creatinine Ratio 12.9 (10-20) Glucose 158 H (70-99(Fasting)) mg/dl Calcium 9.6 (8.5-10.1) mg/dl Phosphorus (2.5-4.9) mg/dl Magnesium (1.7-2.4) mg/dl Total Bilirubin 0.6 (0.2-1.0) mg/dl AST 14 (13-39) U/L ALT 9 (7-52) U/L Alkaline Phosphatase 32 L (34-104) U/L Total Creatine Kinase (26-192) U/L Troponin I High Sens 44.1 H (0-14) pg/ml C-Reactive Protein (0-0.5) mg/dl Total Protein 7.4 (6.0-8.3) gm/dl Albumin 4.7 (3.4-5.0) gm/dl Globulin 2.7 (2.5-4.0) gm/dl Albumin/Globulin Ratio 1.7 (0.9-2) Adenovirus (PCR) (NotDetected) B. pertussis DNA (PCR) (NotDetected) B.parapertussis DNA PCR (NotDetected) C. pneumoniae DNA (PCR) (NotDetected) Coronavirus OC43 (PCR) (NotDetected) Coronavirus HKU1 (PCR) (NotDetected) Coronavirus 229E (PCR) (NotDetected) SARS-CoV-2 (PCR) (NotDetected) Coronavirus NL63 (PCR) (NotDetected) Coxsackie Type A(2) Ab [place]ackie Type A(4) Ab [place]ackie Type A(7) Ab [place]ie Type A(9) Ab [place] Type A(10) Ab [place] Type A(16) Ab [place] Type B(1) Ab [place] Type B(2) Ab [place] Type B(3) Ab [place] Type B(4) Ab [place] Type B(5) Ab [place] Type B(6) Ab Human Metapneumovir PCR (NotDetected) Influenza Type A (PCR) (NotDetected) Influenza Type B (PCR) (NotDetected) M. pneumoniae (PCR) (NotDetected) Parainfluenza 1 (PCR) (NotDetected) Parainfluenza 2 (PCR) (NotDetected) Parainfluenza 3 (PCR) (NotDetected) Parainfluenza 4 (PCR) (NotDetected) RSV (PCR) (NotDetected) Entero/Rhino (PCR) (NotDetected) 10/16/22 10/16/22 Range/Units 15:54 15:45 WBC 7.30 (4.8-10.8) K/ul RBC 4.12 (3.93-5.22) M/uL Hgb 12.2 (12.0-16.0) g/dl Hct 34.5 (34.1-44.9) % MCV 83.7 (80.0-100.0) fL MCH 29.6 (25.0-34.0) pg MCHC 35.4 (32.0-36.0) g/dL RDW Std Deviation 35.8 L (36.4-46.3) fL RDW Coeff of Andre 11.9 (11.5-14.5) % Plt Count 270 (130-400) K/uL MPV 9.9 (9.4-12.3) fL Immature Gran % (Auto) 0.3 % Neut % (Auto) 65.3 % Lymph % (Auto) 28.1 % Bollinger % (Auto) 3.6 % Eos % (Auto) 2.2 % Baso % (Auto) 0.5 % Neut # (Auto) 4.77 (1.4-6.5) K/uL Lymph # (Auto) 2.05 (1.2-3.4) K/uL Bollinger # (Auto) 0.26 (0.24-0.82) K/uL Eos # (Auto) 0.16 (0-0.50) K/uL Baso # (Auto) 0.04 (0-0.2) K/uL Immature Gran # (Auto) 0.02 (0.00-0.02) K/uL ESR (0-20) mm/hr PT (9.0-12.0) Seconds INR (0.9-1.1) APTT (21.0-31.0) Seconds PTT Ratio D-Dimer (0-500) ug/L FEU Sodium (136-145) mmol/L Potassium (3.5-5.1) mmol/L Chloride (98-107) mmol/L Carbon Dioxide (21-32) mmol/L Anion Gap (3-11) BUN (6-23) mg/dl Creatinine (0.6-1.2) mg/dl Est Cr Clr Drug Dosing Est GFR ( Amer) ml/min Est GFR (Non-Af Amer) ml/min BUN/Creatinine Ratio (10-20) Glucose (70-99(Fasting)) mg/dl Calcium (8.5-10.1) mg/dl Phosphorus (2.5-4.9) mg/dl Magnesium (1.7-2.4) mg/dl Total Bilirubin (0.2-1.0) mg/dl AST (13-39) U/L ALT (7-52) U/L Alkaline Phosphatase (34-104) U/L Total Creatine Kinase (26-192) U/L Troponin I High Sens (0-14) pg/ml C-Reactive Protein < 0.50 (0-0.5) mg/dl Total Protein (6.0-8.3) gm/dl Albumin (3.4-5.0) gm/dl Globulin (2.5-4.0) gm/dl Albumin/Globulin Ratio (0.9-2) Adenovirus (PCR) (NotDetected) B. pertussis DNA (PCR) (NotDetected) B.parapertussis DNA PCR (NotDetected) C. pneumoniae DNA (PCR) (NotDetected) Coronavirus OC43 (PCR) (NotDetected) Coronavirus HKU1 (PCR) (NotDetected) Coronavirus 229E (PCR) (NotDetected) SARS-CoV-2 (PCR) (NotDetected) Coronavirus NL63 (PCR) (NotDetected) Coxsackie Type A(2) Ab Coxsackie Type A(4) Ab [place]ackie Type A(7) Ab [place]ackie Type A(9) Ab [place] Type A(10) Ab [place] Type A(16) Ab [place] Type B(1) Ab [place] Type B(2) Ab [place] Type B(3) Ab [place] Type B(4) Ab [place]ack[place] Type B(5) Ab [place]ackie Type B(6) Ab Human Metapneumovir PCR (NotDetected) Influenza Type A (PCR) (NotDetected) Influenza Type B (PCR) (NotDetected) M. pneumoniae (PCR) (NotDetected) Parainfluenza 1 (PCR) (NotDetected) Parainfluenza 2 (PCR) (NotDetected) Parainfluenza 3 (PCR) (NotDetected) Parainfluenza 4 (PCR) (NotDetected) RSV (PCR) (NotDetected) Entero/Rhino (PCR) (NotDetected)
[2022-10-17] MEDS ORDERED: POTASSIUM CHLORIDE CRTAB 20 MEQ TABCR PO STA (07:28)
--- NOTE | 2022-10-17 08:04 | Communication Note ---
Date of Service: October 17, 2022 Second troponin was 454. repeat ekg no new acute changes,. Patient was still having 3/10 left sided chest pain radiating to left upper extremity. gave nitro . Also received a dose of morphine. Told the patient to let us know if symptoms gets worse.Pain seems same. Started on iv heparin. As patient wanted to repeat troponin sooner repeated q4hrs at 3am and was trending down at 423. Close monitor. Notified am provider. Thanks.
[2022-10-17] MEDS ORDERED: SODIUM CHLORIDE 0.9% 1000ML 500 ML IV ONE (08:13)
[2022-10-17] MEDS ORDERED: MoRPHine SULFATE 2 MG/ML CARP IV PRN (08:15)
[2022-10-17] MEDS ORDERED: ASPIRIN 81 MG ECTAB PO SCH (09:00)
--- NOTE | 2022-10-17 10:35 | Electrocardiogram Report ---
Test Reason : Blood Pressure : / mmHG Vent. Rate : 108 BPM Atrial Rate : 108 BPM P-R Int : 116 ms QRS Dur : 086 ms QT Int : 326 ms P-R-T Axes : 070 057 007 degrees QTc Int : 436 ms Sinus tachycardia Possible Left atrial enlargement RSR' or QR pattern in V1 suggests right ventricular conduction delay ST depression consider inferolateral ischemia Abnormal ECG No previous ECGs available Confirmed by Henrry Esquivel ([id number]) on 10/17/2022 10:34:54 AM Referred By: REFERRED SELF Confirmed By:Henrry Esquivel
[2022-10-17 11:02] LABS: Partial Thromboplastin Ratio 2.3
[2022-10-17 11:13] LABS: Partial Thromboplastin Time 62.4 Seconds (21.0-31.0)
[2022-10-17] MEDS: ACETAMINOPHEN 325 MG TAB PO PRN ×2 (13:20→19:27)
--- NOTE | 2022-10-17 14:14 | Ultrasound Report ---
BILATERAL LOWER EXTREMITY VENOUS DOPPLER CLINICAL HISTORY: Bilateral leg pain. COMPARISON STUDY: No previous studies for comparison. TECHNIQUE: Sonography of the deep venous system of the bilateral lower extremities was performed. Co mpression and augmentation were evaluated. FINDINGS: The bilateral common femoral, superficial femoral and popliteal veins were compressible. A ugmentation was normal. Flow was shown within the deep calf vessels. IMPRESSION: No evidence of deep venous thrombus within the bilateral lower extremities. ACT 112: Negative or not required by law. Electronically signed by: Adryan Casey M.D. 10/17/2022 2:12 PM
--- NOTE | 2022-10-17 14:40 | Electrocardiogram Report ---
Test Reason : Blood Pressure : / mmHG Vent. Rate : 086 BPM Atrial Rate : 086 BPM P-R Int : 132 ms QRS Dur : 090 ms QT Int : 366 ms P-R-T Axes : 074 060 038 degrees QTc Int : 437 ms Normal sinus rhythm ST depression in the inferolateral leads Abnormal ECG When compared with ECG of 16-OCT-2022 15:37, (unconfirmed) No significant change was found Confirmed by Henrry Esquivel ([id number]) on 10/17/2022 2:40:02 PM Referred By: REFERRED SELF Confirmed By:Henrry Esquivel
--- NOTE | 2022-10-17 14:49 | Electrocardiogram Report ---
Test Reason : Blood Pressure : / mmHG Vent. Rate : 081 BPM Atrial Rate : 081 BPM P-R Int : 136 ms QRS Dur : 088 ms QT Int : 382 ms P-R-T Axes : 070 062 046 degrees QTc Int : 443 ms Normal sinus rhythm with sinus arrhythmia Nonspecific ST abnormality Abnormal ECG When compared with ECG of 17-OCT-2022 00:13, (unconfirmed) No significant change was found Confirmed by Henrry Esquivel ([id number]) on 10/17/2022 2:48:39 PM Referred By: REFERRED SELF Confirmed By:Henrry Esquivel
--- NOTE | 2022-10-17 16:46 | Cardiology Consultation ---
Date of Consultation October 17, 2022 Assessment & Plan (1) Chest pain: (2) Sjogren syndrome with keratoconjunctivitis: (3) Functional neurological symptom disorder (conversion disorder), with abnormal movement: (4) Migraine: (5) Awareness of heart beat: Plan Patient presented with acute onset of atypical chest pain that occurred while lying on her left side on the floor. Troponin elevated above reference range but I do not believe this represents acute ischemia Initial EKG in the ER showed significant ST segment abnormalities but follow-up studies did not, ?Lead placement? 2D echocardiogram without wall motion abnormality or pericardial effusion I do not believe this represents acute coronary syndrome For completeness sake would recommend patient obtain outpatient cardiac MRI at [facility] which my office will facilitate Tickborne panel also to be drawn per family request Okay to discharge to home from a cardiac standpoint, patient very anxious for discharge given that she has young children and that this is I discussed the above findings, their implications and differential diagnosis with the patient and her at bedside in great lengths. They both state they understand agree with the above recommendations and will follow up for outpatient MRI Also recommend close follow-up with PCP as an outpatient for further evaluation History of Present Illness Reason for Consultation: Chest pain Requesting Physician: [facility] hospitalist group Attending Physician: Reji Riley MD History of Present Illness It was my pleasure to see Mrs. Lara in cardiac consultation today October 17, 2022. She is a very pleasant 37-year-old woman who I saw her remotely in the past for palpitations. She presented to [facility] emergency department on 10/16/2022 with complaints of abrupt onset of chest pain. The patient states that she just stretched out on the floor at her [id number] house and was laying on her left side when she suddenly developed midsternal chest pain. She described the pain as a fullness sensation/stabbing sensation which lasted until she received Toradol in the emergency department. Otherwise, she states that she has been having palpitations as of late but these have not changed in several years and they have previously been diagnosed as cardiac awareness. Upon presentation emergency department her initial troponin was unremarkable but second level was drawn which was above reference range and she was admitted to telemetry. Initial EKG was also abnormal showing diffuse ST segment abnormalities but follow-up EKGs have shown those abnormalities to have almost completely resolved. Allergies Allergy/AdvReac Type Severity Reaction Status Date / Time egg Allergy Severe ANAPHYLAXIS Verified 12/09/20 07:47 Penicillins Allergy Intermediate . Verified 12/09/20 07:47 Home Medications Medication Instructions Recorded Confirmed Type acetaminophen 500 mg capsule 500 mg PO DAILY 10/16/22 10/16/22 History calcium carbonate 500 mg calcium 500 mg PO HS PRN Dyspepsia 10/16/22 10/16/22 History (1,250 mg) chewable tablet ibuprofen 200 mg tablet (Advil) 200 mg PO DAILY 10/16/22 10/16/22 History Patient History Medical History (Updated 10/17/22 @ 16:44 by Ha Tellez DO) Functional neurological symptom disorder (conversion disorder), with abnormal movement Migraine Sjogren syndrome with keratoconjunctivitis Family History Father Heart disease Social History Smoking Status: Never smoker Hx Alcohol Use: No Hx Substance Use: No Preferred Language: [place] Communication Ability: Effective Order Entry Technician Required: No Beliefs That Will Affect Care: None Current Living Situation: Spouse and Family Other Information That Helps Us Care for You: No Feels Safe at Home: Yes Safety Concerns: Feels Safe At This Time Assistive Devices: Contacts Results & Data ([facility]) Vital Signs (Past 12 Hours) Vital Signs Temp Pulse Pulse Resp BP Pulse Ox O2 Del Method 10/17/22 15:49 36.7 C 96 H 16 101/62 98 Room Air 10/17/22 12:02 36.8 C 85 18 119/83 97 Room Air 10/17/22 08:00 76 10/17/22 07:25 36.6 C 84 20 126/87 99 Room Air
--- NOTE | 2022-10-18 08:45 | Discharge Summary ---
Date of Service October 18, 2022 Admission HPI Per Admitting Provider 37-year-old female with history of migraine, functional neurological disorder/left-sided weakness, history of palpitations during , who now presents with chest pain and worsening left arm weakness and pain. Patient reports that she has left-sided weakness on and off, having "some good days, and some bad days". Reports she has had this for past 4 years. Per chart review, she is being evaluated by neurology, Dr. Cedeño. She says that she had a good day on , she was at home, with her children wrapping Melvi presents. Then yesterday she was at work half a day, did not have a very good d ay, felt tired, went to bed early. This morning she reports feeling well after waking up. Says she drove a short distance to her [id number] and at that time felt fine. However soon into the visit she started to experience chest pain, and worsening left arm weakness and pain. She reports laying on the floor, playing with a small dog, and denies any strenuous activity whatsoever. Reports chest pain was significant, and she could not move for about 15 minutes while laying on the floor. Denies any previous history of chest pains. Reports her left-sided weakness/pain got worse. After coming to the ED, patient reports her chest pain is improved however she continues to feel shoulder pain, which seems to be worse now. Says she had some shortness of breath. No nausea or vomiting. 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 Denies any fevers chills cough or any other respiratory symptoms. Denies abdominal pain diarrhea constipation. Patient's is present at bedside. In the ED, troponin was found elevated at 44. D-dimer was not elevated. Some ST depressions noted on ECG, and Sinus tachycardia. Admission Exam Per Admitting Provider Constitutional: WD/WN, vitals as above Eyes: PERRL, conjunctivae normal, anicteric sclerae ENMT: external ear and nose normal, oropharynx normal Neck: trachea midline, no thyromegaly Respiratory: normal respiratory effort, lungs clear to auscultation Cardiovascular: Rate/Rhythm: + tachycardic (HR low 100s) Chest (Breasts): Chest: normal inspection of chest Gastrointestinal (Abdomen): normal bowel sounds, soft, nontender, no hepatosplenomegaly Musculoskeletal: Patient moves extremities. Tremor when testing leg strength. Tremor however resolved shortly afterward. Skin: no rashes, warm and dry Neurologic: PERRL, EOMI, accommodation nl, no face palsy, no dysarthria Genitourinary: no CVA tenderness Lymphatic: no LE edema Principal Diagnosis Atypical chest pain Discharge Exam Constitutional: WD/WN, in NAD Eyes: PERRL, EOMI ENMT: external ear and nose normal, oropharynx normal Neck: supple Respiratory: normal respiratory effort, lungs clear to auscultation Cardiovascular: RRR Chest (Breasts): Chest: normal inspection of chest Gastrointestinal (Abdomen): normal bowel sounds, soft, nontender Musculoskeletal: Patient moves extremities. No weakness noted. Skin: no rashes, warm and dry Neurologic: PERRL, EOMI, no face palsy, no dysarthria, moves extremities Genitourinary: no CVA tenderness Lymphatic: no LE edema Discharge Data Allergies Allergy/AdvReac Type Severity Reaction Status Date / Time egg Allergy Severe ANAPHYLAXIS Verified 12/09/20 07:47 Penicillins Allergy Intermediate . Verified 12/09/20 07:47 Consultations 10/16/22 17:44 ED Decision to Admit Stat 10/16/22 21:48 Consult Cardiology Routine Ordered Studies 10/17/22 08:13 US venous doppler LE BI Routine IMPRESSION: No evidence of deep venous thrombus within the bilateral lower extremities. Hospital Course (1) Chest pain: Patient presents with sudden onset of chest pain, radiating to her left arm Troponin elevated at 44, EKG showing sinus tachycardia, and ST depressions Chest pain somewhat improved after Toradol and fluids given in the ED However radiation to left arm was somewhat worse Denies any sick contacts, or any respiratory symptoms Overnight troponin elevated to 495. Patient was started on IV heparin by service observer chief. monitored on telemetry ACS unlikely given young female with no known risk factors Possible pericarditis/myocarditis? ESR, CRP obtained and negative bio fire - negative, coxsackievirus - pending echocardiogram obtained and cardiology consulted Echo -LV is normal in size there is normal LV wall motion and thickness. LV systolic function is normal. No segmental left ventricular wall motion abnormalities are noted. EF 60 to 65%. The LV wall motion is normal. 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 Cedeño -Recently MRI studies obtained - cont. to follow as outpt Total Time Total Time Spent Total Time Spent (In Minutes): 40 Discharge Plan Discharge Items Patient Disposition: Home - Self-Care Reason For Visit: CHEST PAIN Discharge Diagnosis: Atypical chest pain Activity: Per Instructions section Non-emergency contact: Primary Care Provider and Policy Specialist Call non-emergency contact if: you have any medication questions and your symptoms worsen Follow-up/Referrals: Bran Vuong MD [Primary Care Provider] - (Discharged 10/17/2022. Will make PCP follow up appointment Tuesday10/19/2022 and call patient with date and time.) Diet: Regular Addtl Attending Provider Instructions: Follow up with your primary care doctor and damage cutter. Cardiology office will contact you about the appointment for cardiac MRI. Follow up with primary care doctor within 1-2 weeks. For pain, take tylenol 1000 mg three times a day, max daily dose 3000mg. Pending Studies at Discharge: No Stand-Alone Forms: [facility] Medications and DC Order Prescriptions: Continued ibuprofen [Advil] 200 mg Tablet 200 mg PO DAILY calcium carbonate 500 mg calcium (1,250 mg) Tablet,Chewable 500 mg PO HS PRN (Reason: Dyspepsia) acetaminophen 500 mg Capsule 500 mg PO DAILY Discharge Orders: Discharge Order (Routine); Ordered 10/17/22 Ordered By: Reji Riley Admission Data Admit Date/Time: 10/16/22 18:12 Attending Provider: Reji Riley Admit Provider: Reji Riley Primary Care Provider: Bran Vuong Other Providers: Simone Britt Andrea F. Other Interventions: Discharge Summary Assessment (RN) Last Done: 10/17/22 19:34
[2022-10-21 07:00] LABS: Babesia microti DNA Not Detected (Not Detected)
[2022-10-23 18:07] LABS: Coxsackie A10 <1:8; Coxsackie A16 <1:8; Coxsackie A2 <1:8; Coxsackie A4 <1:8; Coxsackie A7 <1:8; Coxsackie A9 <1:8; Coxsackie B1 1:32 (<1:8); Coxsackie B2 1:16 (<1:8); Coxsackie B4 1:16 (<1:8); Coxsackie B5 1:32 (<1:8); Coxsackie B6 1:32 (<1:8)
== END 2022-10-17 20:00 | disposition home or self-care (01) ==
LOC: ED 15:24 → 4W 15:24

== ENCOUNTER 2023-04-12 20:33 | Observation (INO) ==
--- NOTE | 2023-04-12 21:34 | CT Scan Report ---
Exam(s): CT HEAD Without Contrast EXAM: CT Head Without Intravenous Contrast CLINICAL HISTORY: Reason for exam: Neuro deficit, acute, stroke suspected. TECHNIQUE: Axial computed tomography images of the head/brain without intravenous contrast. CTDI is 38.9 mGy and DLP is 547.75 mGy-cm. Automated exposure control was utilized for the study. A dose lowering technique was utilized adhering to the principles of ALARA. COMPARISON: CT head on 01/25/2023 FINDINGS: Brain: No acute infarct or hemorrhage. No extra-axial fluid collection. No mass effect or midline shift. Ventricles and sulci: Normal. No ventriculomegaly or intraventricular hemorrhage. Bones: Normal. No bony lesion or acute fracture. Subcutaneous tissues: Normal. Sinuses: Mild to moderate mucosal thickening in right greater than left ethmoid air cells and frontal sinuses. Mastoid air cells: Normal. Orbits: Grossly unremarkable. IMPRESSION: No acute intracranial abnormality. Electronically signed by: Rafael Gaxiola M.D. 04/12/23 21:33 PM
[2023-04-12 21:38] LABS: Hematocrit (blood only) 34.8 % (37.0-47.0); Hemoglobin 12.2 g/dl (12.0-16.0); Mean Corpuscular Hgb Conc 35.1 g/dL (32.0-36.0); Mean Corpuscular Volume 82.9 fL (80.0-100.0); Mean Platelet Volume 9.9 fL (9.4-12.4); Platelet Count 280 K/uL (130-400); RDW Standard Deviation 36.3 fL (36.4-46.3); White Blood Count 6.61 K/ul (4.8-10.8)
[2023-04-12] MEDS ORDERED: SODIUM CHLORIDE 0.9% 1000ML 1,000 ML IV ONE (21:49)
[2023-04-12 21:51] LABS: Albumin Globulin Ratio 1.7 (0.9-2); Albumin Level 4.7 gm/dl (3.4-5.0); BUN Creatinine Ratio 12.3 (10-20); Bilirubin,Total 0.4 mg/dl (0.2-1.0); Calcium 9.7 mg/dl (8.6-10.3); Creatinine Clr Calc Pharmacy 95.5 ml/min; Est GFR (African American) 133.3 ml/min; Globulin 2.7 gm/dl (2.5-4.0); Magnesium 1.8 mg/dl (1.7-2.4); Potassium 3.3 mmol/L (3.5-5.1); Total Protein 7.4 gm/dl (6.0-8.3)
[2023-04-12 22:03] LABS: Partial Thromboplastin Ratio 0.9; Partial Thromboplastin Time 25.4 Seconds (21.0-31.0)
[2023-04-12] MEDS ORDERED: OPTIRAY 320 125ml IV ONE (22:15)
--- NOTE | 2023-04-12 22:19 | Emergency Department Note ---
ED Provider Note History of Present Illness Chief Complaint: TIA Symptoms Stated Complaint: TROUBLE BREATHING,SLURRING SPEECH,VISIUAL ISSUES Time Seen by Provider: 04/12/23 21:39 This 37-year-old female patient with significant past medical history of myocarditis, chronic intermittent left sided weakness and paresthesias, currently undergoing neurologic work-up with the [facility], presents to the emergency department today for evaluation of slow speech visual disturbances which has been slowly improving since onset at about 7 PM. 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 At about 4 PM, she ate apple pie. She also took her scheduled baclofen which she takes 3 times daily. She states she did not have anything for dinner. By 7 PM, she was sitting on the couch talking with her , notes the news was on in the background. She began noticing some visual disturbances which she describes as dark spots in her vision. The patient denies any visual field deficits, but states that the symptoms were intermittent and diffuse. After that began, within about an hour, the patient's notes that her speech became very slow. She was having difficulty with some word finding, but was comprehending questions without trouble. Her speech was very slow and it was difficult for her to understand what she was trying to say due to the slowness. It was somewhat slurred. Since that time, the patient's symptoms have significantly improved. She states over the past 45 minutes, she developed a slight headache on the left side of her head. The headache only started after she had the chest x-ray completed here in the emergency department. The patient states the headache comes and goes, at its worst it is about a 6 or 7/10, and currently it is a 3/10. The patient describes the headache as sharp and throbbing. She is currently being worked up by [facility] for possible MS or other neurologic condition. She had plans, MRIs of her brain, as well as a lumbar puncture, all with negative work-ups. The patient states she is chronically on colchicine due to a "mild heart attack" in September. When further asked about this, the patient states she was diagnosed with myocarditis. She does follow with cardiology with [facility]. Patient denies any recent fever or illness. She states she did not drink any alcohol or do any drugs. She has had extensive tickborne illness work-up which has been negative. Patient states she drank some water throughout the day, but did not eat dinner. She denies any chest pain or shortness of breath. She states there is some left-sided weakness which is not unlike her baseline. Patient's denies any weakness. She was able to ambulate without difficulty. There is no facial droop. Home Medications Medication Instructions Recorded Confirmed Type calcium carbonate 500 mg calcium 500 mg PO HS PRN Dyspepsia 10/16/22 04/12/23 History (1,250 mg) chewable tablet ibuprofen 200 mg tablet (Advil) 200 mg PO DAILY PRN Headache 10/16/22 04/12/23 History baclofen 10 mg tablet 10 mg PO TID 01/21/23 04/12/23 History colchicine 0.6 mg tablet 0.6 mg PO BID 01/23/23 04/12/23 History pantoprazole 40 mg tablet,delayed 40 mg PO DAILY 01/23/23 04/12/23 History release Allergies Allergy/AdvReac Type Severity Reaction Status Date / Time chocolate flavor Allergy Severe bleeding Verified 01/25/23 11:12 cysts under skin stomach pain egg Allergy Severe ANAPHYLAXIS Verified 01/25/23 11:12 Penicillins Allergy Intermediate . 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), with abnormal movement Migraine Sjogren syndrome with keratoconjunctivitis Family History Father Heart disease Social History Smoking Status: Never smoker Second Hand Exposure: No; Hx Alcohol Use: No Hx Substance Use: No Preferred Language: Frisian Communication Ability: Effective Life Claims Examiner Required: Yes Beliefs That Will Affect Care: None Current Living Situation: Spouse Feels Safe at Home: Yes Assistive Devices: None Physical Exam Vital Signs Vital Signs - 24 hr 04/12/23 20:35 04/12/23 20:51 04/12/23 21:03 Temperature 36.9 C Temperature Source Temporal Artery Scan Pulse Rate 94 H 108 H 75 Pulse Rate from SpO2 Sensor Respiratory Rate 18 22 Respiratory Effort / Characteristics Non-Labored Spontaneous Respiratory Depth Normal Respiratory Pattern Regular Blood Pressure 140/94 131/85 Blood Pressure Mean 109 100 Blood Pressure Position Sitting Pulse Oximetry 99 100 Oxygen Delivery Method Room Air Sepsis Recent Fever Within 48 Hours No Sepsis New/Unexplained Change in Mental Status N/A Sepsis Action Taken by Nursing No Action Required 04/12/23 21:15 04/12/23 21:30 04/12/23 21:40 Temperature Temperature Source Pulse Rate 73 82 70 Pulse Rate from SpO2 Sensor 76 Respiratory Rate 16 16 19 Respiratory Effort / Characteristics Respiratory Depth Respiratory Pattern Blood Pressure 140/83 137/83 Blood Pressure Mean 102 101 Blood Pressure Position Pulse Oximetry 100 100 93 Oxygen Delivery Method Sepsis Recent Fever Within 48 Hours Sepsis New/Unexplained Change in Mental Status Sepsis Action Taken by Nursing 04/12/23 22:00 04/12/23 22:32 04/12/23 23:04 Temperature Temperature Source Pulse Rate 80 69 70 Pulse Rate from SpO2 Sensor Respiratory Rate 18 16 16 Respiratory Effort / Characteristics Respiratory Depth Respiratory Pattern Blood Pressure 137/87 127/73 132/85 Blood Pressure Mean 103 91 100 Blood Pressure Position Pulse Oximetry 91 100 100 Oxygen Delivery Method Sepsis Recent Fever Within 48 Hours Sepsis New/Unexplained Change in Mental Status Sepsis Action Taken by Nursing 04/13/23 00:00 04/13/23 00:48 04/13/23 00:30 Temperature Temperature Source Pulse Rate 88 93 H 77 Pulse Rate from SpO2 Sensor Respiratory Rate 14 18 Respiratory Effort / Characteristics Respiratory Depth Respiratory Pattern Blood Pressure 122/84 116/78 Blood Pressure Mean 96 90 Blood Pressure Position Pulse Oximetry 100 98 Oxygen Delivery Method Sepsis Recent Fever Within 48 Hours Sepsis New/Unexplained Change in Mental Status Sepsis Action Taken by Nursing 04/13/23 01:00 Temperature Temperature Source Pulse Rate 63 Pulse Rate from SpO2 Sensor Respiratory Rate 16 Respiratory Effort / Characteristics Respiratory Depth Respiratory Pattern Blood Pressure 111/71 Blood Pressure Mean 84 Blood Pressure Position Pulse Oximetry 97 Oxygen Delivery Method Sepsis Recent Fever Within 48 Hours Sepsis New/Unexplained Change in Mental Status Sepsis Action Taken by Nursing VITALS: Vitals are noted on the nurse's note and reviewed by myself. Vital si gns stable. GENERAL: This is a 37-year-old female, in no acute distress, nondiaphoretic, well-developed well-nourished. SKIN: The skin was without rashes, erythema, edema, or bruising. There is no te nting of the skin. Capillary refill less than 2 seconds. HEAD: Normocephalic atraumatic. EARS: External auditory canals clear, tympanic membranes pearly torres without erythema or effusion bilaterally. EYES: Pupils dilated, equal round and reactive to light and accommodation. Conjunctivae without injection, sclerae without icterus. Extraocular movements intact. NOSE: Patent, turbinates without inflammation or discharge. No sinus tenderness. MOUTH: Mucous membranes moist. Tonsils are not enlarged. Pharynx without erythema or exudate. Uvula midline. Airway patent. Tongue does not deviate. NECK: Supple without nuchal rigidity. No lymphadenopathy. No JVD. HEART: Regular rate and rhythm without murmurs gallops or rubs. LUNGS: Clear to auscultation bilaterally without wheezes, rales or rhonchi. No retractions or accessory muscle use. ABDOMEN: Positive bowel sounds x 4. Normal tympanic percussion. Soft, nontender, without masses or organomegaly. Gore sign negative. No guarding or rebound tenderness. MUSCULOSKELETAL: No muscle atrophy, erythema, or edema noted. Full range of motion without joint tenderness in all extremities. No tenderness to palpation. Normal gait. Strength 5/5 throughout. NEURO: Patient was alert and oriented to person place and time. Speech is slow, but not slurred. Normal sensation to light and sharp touch. Deep tendon reflexes 2+ throughout. No focal neurological deficits. Course Course The patient was seen and evaluated as above. An order was placed for continuous cardiac monitoring. The monitor shows a normal sinus rhythm at a rate of 63 bpm. IV access obtained, labs drawn. Pt. medicated with IV fluids Imaging performed and reviewed by myself and radiologist as noted. Labs reviewed by myself. I discussed the findings with the patient at bedside. She was reassessed and speech is improving but not completely normal. Pt. states she still is not at he r baseline. I recommended admission and the patient would like to talk it over with her . I again checked in on the patient. She was agreeable with admission. She is complaining of persistent headache and requesting medication for pain. Patient was medicated with IV Toradol, Benadryl, Compazine. I discussed the case with Dr. Rosado, [facility] physician. He did agree to see and evaluate the patient for admission I discussed the case with my attending. Administered Medications Magnesium Sulfate/Dextrose (Magnesium Sulfate / D5w) 1 gm in 100 mls @ 50 mls/hr IV ONE ONE Stop: 04/13/23 02:30 Last Admin: 04/13/23 00:55 Dose: 50 mls/hr Documented By: KAITLYN Potassium Chloride/Sodium Chloride (Normal Saline W/20 Meq Kcl) 20 meq in 1,000 mls @ 80 mls/hr IV .[id number] ONE; Protocol Stop: 04/13/23 13:00 Last Admin: 04/13/23 00:56 Dose: 80 mls/hr Documented By: KAITLYN Discontinued Medications Diphenhydramine HCl (Diphenhydramine 50 Mg/Ml Vial) 25 mg IV NOW STA Stop: 04/13/23 00:25 Last Admin: 04/13/23 00:44 Dose: 25 mg Documented By: KAITLYN Sodium Chloride (Nss 1000ml) 1,000 mls @ 999 mls/hr IV .Q1H1M ONE Stop: 04/12/23 22:49 Last Infusion: 04/12/23 23:26 Dose: 0 mls/hr Documented By: Admin: 04/12/23 22:25 Dose: 999 mls/hr Documented By: KAITLYN Prochlorperazine (Compazine) 2 mls @ 1 mls/min IV ONE ONE Stop: 04/13/23 00:25 Last Admin: 04/13/23 00:44 Dose: 1 mls/min Documented By: KAITLYN Ioversol (Optiray 320 125ml) 120 ml IV ONCE ONE Stop: 04/12/23 22:16 Last Admin: 04/12/23 22:16 Dose: 120 ml Documented By: MARLENY Ketorolac Tromethamine (Ketorolac Tromethamine 15 Mg/Ml Vial) 15 mg IV NOW STA Stop: 04/13/23 00:25 Last Admin: 04/13/23 00:44 Dose: 15 mg Documented By: KAITLYN Medical Decision Making Differential Diagnosis Infection, hypoglycemia, electrolyte abnormalities, overdose, toxicologic, cardiac sources, intracerebral event, neurologic, trauma, as well as other pathologies. Medical Records Attestation: I reviewed the patient's medical records. Home Medications was personally reviewed by me Laboratory Data No leukocytosis, anemia, thrombocytopenia. Renal, hepatic function, and electrolytes without significant abnormality. INR 1.0. Tick borne illness testing negative. Hcg negative. UA negative for blood or infection. UDS negative. Covid-19 testing negative. 04/12/23 20:55 04/12/23 20:55 Lab Results 04/12/23 04/12/23 04/12/23 Range/Units 20:52 20:55 20:55 WBC 6.61 (4.8-10.8) K/ul RBC 4.20 (4.20-5.40) M/uL Hgb 12.2 (12.0-16.0) g/dl Hct 34.8 L (37.0-47.0) % MCV 82.9 (80.0-100.0) fL MCH 29.0 (25.0-34.0) pg MCHC 35.1 (32.0-36.0) g/dL RDW Std Deviation 36.3 L (36.4-46.3) fL RDW Coeff of Andre 12.0 (11.5-14.5) % Plt Count 280 (130-400) K/uL MPV 9.9 (9.4-12.4) fL PT 11.0 (9.0-12.0) Seconds INR 1.0 (0.9-1.1) APTT 25.4 (21.0-31.0) Seconds PTT Ratio 0.9 Sodium (136-145) mmol/L Potassium (3.5-5.1) mmol/L Chloride (98-107) mmol/L Carbon Dioxide (21-32) mmol/L Anion Gap (3-11) BUN (6-23) mg/dl Creatinine (0.6-1.2) mg/dl Est Cr Clr Drug Dosing ml/min Est GFR ( Amer) ml/min Est GFR (Non-Af Amer) ml/min BUN/Creatinine Ratio (10-20) Glucose (70-99(Fasting)) mg/dl POC Glucose 116 H (70-99) mg/dl Calcium (8.6-10.3) mg/dl Magnesium (1.7-2.4) mg/dl Total Bilirubin (0.2-1.0) mg/dl AST (13-39) U/L ALT (7-52) U/L Alkaline Phosphatase (34-104) U/L Troponin I High Sens (0-14) pg/ml Total Protein (6.0-8.3) gm/dl Albumin (3.4-5.0) gm/dl Globulin (2.5-4.0) gm/dl Albumin/Globulin Ratio (0.9-2) HCG, Qual (Negative) Urine Color Urine Appearance (Clear) Urine pH (4.5-7.5) Ur Specific [place] (1.000-1.030) Urine Protein (Negative) Urine Glucose (UA) (Negative) Urine Ketones (Negative) Urine Blood (Negative) Urine Nitrite (Negative) Urine Bilirubin (Negative) Urine Urobilinogen (Negative) Ur Leukocyte Esterase (Negative) Urine Opiates Screen (Neg) Ur Methadone, Qual (Neg) Urine Barbiturates (Neg) Ur Phencyclidine (PCP) (Neg) U Amphetamin/Meth Scrn (Neg) MDMA (Ecstasy) Screen (Neg) U Benzodiazepines Scrn (Neg) Ur Cocaine Metabolite (Neg) U Marijuana (THC) Screen (Neg) Anaplasma Smear Babesia Smear Lyme Disease IgG Ab (Negative) Lyme Disease IgM Ab (Negative) SARS-CoV-2, RNA, NAAT (NEGATIVE) Blood Type Antibody Screen 04/12/23 04/12/23 04/12/23 Range/Units 20:55 21:01 21:01 WBC (4.8-10.8) K/ul RBC (4.20-5.40) M/uL Hgb (12.0-16.0) g/dl Hct (37.0-47.0) % MCV (80.0-100.0) fL MCH (25.0-34.0) pg MCHC (32.0-36.0) g/dL RDW Std Deviation (36.4-46.3) fL RDW Coeff of Andre (11.5-14.5) % Plt Count (130-400) K/uL MPV (9.4-12.4) fL PT (9.0-12.0) Seconds INR (0.9-1.1) APTT (21.0-31.0) Seconds PTT Ratio Sodium 136 (136-145) mmol/L Potassium 3.3 L (3.5-5.1) mmol/L Chloride 102 (98-107) mmol/L Carbon Dioxide 23 (21-32) mmol/L Anion Gap 11 (3-11) BUN 8 (6-23) mg/dl Creatinine 0.65 (0.6-1.2) mg/dl Est Cr Clr Drug Dosing 95.5 ml/min Est GFR ( Amer) 133.3 ml/min Est GFR (Non-Af Amer) 115.0 ml/min BUN/Creatinine Ratio 12.3 (10-20) Glucose 103 H (70-99(Fasting)) mg/dl POC Glucose (70-99) mg/dl Calcium 9.7 (8.6-10.3) mg/dl Magnesium 1.8 (1.7-2.4) mg/dl Total Bilirubin 0.4 (0.2-1.0) mg/dl AST 20 (13-39) U/L ALT 19 (7-52) U/L Alkaline Phosphatase 41 (34-104) U/L Troponin I High Sens 2.8 (0-14) pg/ml Total Protein 7.4 (6.0-8.3) gm/dl Albumin 4.7 (3.4-5.0) gm/dl Globulin 2.7 (2.5-4.0) gm/dl Albumin/Globulin Ratio 1.7 (0.9-2) HCG, Qual (Negative) Urine Color Yellow Urine Appearance Clear (Clear) Urine pH 8.0 H (4.5-7.5) Ur Specific [place] 1.002 (1.000-1.030) Urine Protein Negative (Negative) Urine Glucose (UA) Negative (Negative) Urine Ketones Negative (Negative) Urine Blood Negative (Negative) Urine Nitrite Negative (Negative) Urine Bilirubin Negative (Negative) Urine Urobilinogen Negative (Negative) Ur Leukocyte Esterase Negative (Negative) Urine Opiates Screen Neg (Neg) Ur Methadone, Qual Neg (Neg) Urine Barbiturates Neg (Neg) Ur Phencyclidine (PCP) Neg (Neg) U Amphetamin/Meth Scrn Neg (Neg) MDMA (Ecstasy) Screen Neg (Neg) U Benzodiazepines Scrn Neg (Neg) Ur Cocaine Metabolite Neg (Neg) U Marijuana (THC) Screen Neg (Neg) Anaplasma Smear Babesia Smear Lyme Disease IgG Ab (Negative) Lyme Disease IgM Ab (Negative) SARS-CoV-2, RNA, NAAT (NEGATIVE) Blood Type Antibody Screen 04/12/23 04/12/2304/12/23 Range/Units 22:54 22:54 22:54 WBC (4.8-10.8) K/ul RBC (4.20-5.40) M/uL Hgb (12.0-16.0) g/dl Hct (37.0-47.0) % MCV (80.0-100.0) fL MCH (25.0-34.0) pg MCHC (32.0-36.0) g/dL RDW Std Deviation (36.4-46.3) fL RDW Coeff of Andre (11.5-14.5) % Plt Count (130-400) K/uL MPV (9.4-12.4) fL PT (9.0-12.0) Seconds INR (0.9-1.1) APTT (21.0-31.0) Seconds PTT Ratio Sodium (136-145) mmol/L Potassium (3.5-5.1) mmol/L Chloride (98-107) mmol/L Carbon Dioxide (21-32) mmol/L Anion Gap (3-11) BUN (6-23) mg/dl Creatinine (0.6-1.2) mg/dl Est Cr Clr Drug Dosing ml/min Est GFR ( Amer) ml/min Est GFR (Non-Af Amer) ml/min BUN/Creatinine Ratio (10-20) Glucose (70-99(Fasting)) mg/dl POC Glucose (70-99) mg/dl Calcium (8.6-10.3) mg/dl Magnesium (1.7-2.4) mg/dl Total Bilirubin (0.2-1.0) mg/dl AST (13-39) U/L ALT (7-52) U/L Alkaline Phosphatase (34-104) U/L Troponin I High Sens (0-14) pg/ml Total Protein (6.0-8.3) gm/dl Albumin (3.4-5.0) gm/dl Globulin (2.5-4.0) gm/dl Albumin/Globulin Ratio (0.9-2) HCG, Qual Negative (Negative) Urine Color Urine Appearance (Clear) Urine pH (4.5-7.5) Ur Specific [place] (1.000-1.030) Urine Protein (Negative) Urine Glucose (UA) (Negative) Urine Ketones (Negative) Urine Blood (Negative) Urine Nitrite (Negative) Urine Bilirubin (Negative) Urine Urobilinogen (Negative) Ur Leukocyte Esterase (Negative) Urine Opiates Screen (Neg) Ur Methadone, Qual (Neg) Urine Barbiturates (Neg) Ur Phencyclidine (PCP) (Neg) U Amphetamin/Meth Scrn (Neg) MDMA (Ecstasy) Screen (Neg) U Benzodiazepines Scrn (Neg) Ur Cocaine Metabolite (Neg) U Marijuana (THC) Screen (Neg) Anaplasma Smear See Comment Babesia Smear See Comment Lyme Disease IgG Ab Negative (Negative) Lyme Disease IgM Ab Negative (Negative) SARS-CoV-2, RNA, NAAT (NEGATIVE) Blood Type Antibody Screen 04/12/23 04/13/23 Range/Units 22:54 01:02 WBC (4.8-10.8) K/ul RBC (4.20-5.40) M/uL Hgb (12.0-16.0) g/dl Hct (37.0-47.0) % MCV (80.0-100.0) fL MCH (25.0-34.0) pg MCHC (32.0-36.0) g/dL RDW Std Deviation (36.4-46.3) fL RDW Coeff of Andre (11.5-14.5) % Plt Count (130-400) K/uL MPV (9.4-12.4) fL PT (9.0-12.0) Seconds INR (0.9-1.1) APTT (21.0-31.0) Seconds PTT Ratio Sodium (136-145) mmol/L Potassium (3.5-5.1) mmol/L Chloride (98-107) mmol/L Carbon Dioxide (21-32) mmol/L Anion Gap (3-11) BUN (6-23) mg/dl Creatinine (0.6-1.2) mg/dl Est Cr Clr Drug Dosing ml/min Est GFR ( Amer) ml/min Est GFR (Non-Af Amer) ml/min BUN/Creatinine Ratio (10-20) Glucose (70-99(Fasting)) mg/dl POC Glucose (70-99) mg/dl Calcium (8.6-10.3) mg/dl Magnesium (1.7-2.4) mg/dl Total Bilirubin (0.2-1.0) mg/dl AST (13-39) U/L ALT (7-52) U/L Alkaline Phosphatase (34-104) U/L Troponin I High Sens (0-14) pg/ml Total Protein (6.0-8.3) gm/dl Albumin (3.4-5.0) gm/dl Globulin (2.5-4.0) gm/dl Albumin/Globulin Ratio (0.9-2) HCG, Qual (Negative) Urine Color Urine Appearance (Clear) Urine pH (4.5-7.5) Ur Specific [place] (1.000-1.030) Urine Protein (Negative) Urine Glucose (UA) (Negative) Urine Ketones (Negative) Urine Blood (Negative) Urine Nitrite (Negative) Urine Bilirubin (Negative) Urine Urobilinogen (Negative) Ur Leukocyte Esterase (Negative) Urine Opiates Screen (Neg) Ur Methadone, Qual (Neg) Urine Barbiturates (Neg) Ur Phencyclidine (PCP) (Neg) U Amphetamin/Meth Scrn (Neg) MDMA (Ecstasy) Screen (Neg) U Benzodiazepines Scrn (Neg) Ur Cocaine Metabolite (Neg) U Marijuana (THC) Screen (Neg) Anaplasma Smear Babesia Smear Lyme Disease IgG Ab (Negative) Lyme Disease IgM Ab (Negative) SARS-CoV-2, RNA, NAAT NEGATIVE (NEGATIVE) Blood Type A Positive Antibody Screen NEGATIVE Imaging Data My Impression: Chest x-ray. Findings: A chest x-ray was performed and revealed no pneumothorax, effusion, infiltrate, pulmonary edema, free air under the diaphragm, or wide mediastinum. Radiologist's Impression: Head CT 04/12/23 21:01 Exam(s): CT HEAD Without Contrast EXAM: CT Head Without Intravenous Contrast CLINICAL HISTORY: Reason for exam: Neuro deficit, acute, stroke suspected. TECHNIQUE: Axial computed tomography images of the head/brain without intravenous contrast. CTDI is 38.9 mGy and DLP is 547.75 mGy-cm. Automated exposure control was utilized for the study. A dose lowering technique was utilized adhering to the principles of ALARA. COMPARISON: CT head on 01/25/2023 FINDINGS: Brain: No acute infarct or hemorrhage. No extra-axial fluid collection. No mass effect or midline shift. Ventricles and sulci: Normal. No ventriculomegaly or intraventricular hemorrhage. Bones: Normal. No bony lesion or acute fracture. Subcutaneous tissues: Normal. Sinuses: Mild to moderate mucosal thickening in right greater than left ethmoid air cells and frontal sinuses. Mastoid air cells: Normal. Orbits: Grossly unremarkable. IMPRESSION: No acute intracranial abnormality. Electronically signed by: Rafael Gaxiola M.D. 04/12/23 21:33 PM Head CTA 04/12/23 21:45 Exam(s): CTA HEAD With Contrast IV Amt: 120 ml optiray 320 EXAM: CT Angiography Head With Intravenous Contrast CLINICAL HISTORY: Reason for exam: neuro deficit, acute stroke suspected. TECHNIQUE: Axial computed tomographic angiography images of the head with intravenous contrast. Automated exposure control was utilized for the study. A dose lowering technique was utilized adhering to the principles of ALARA. MIP reconstructed images were created and reviewed. CONTRAST: Patient received 120 ml optiray 320 of IV contrast COMPARISON: No relevant prior studies available. FINDINGS: Right internal carotid artery: No acute findings. Intracranial segment is patent with no significant stenosis. No aneurysm. Right anterior cerebral artery: Unremarkable. No occlusion or significant stenosis. No aneurysm. Right middle cerebral artery: Unremarkable. No occlusion or significant stenosis. No aneurysm. Right posterior cerebral artery: Unremarkable. No occlusion or significant stenosis. No aneurysm. Right vertebral artery: Unremarkable as visualized. Left internal carotid artery: No acute findings. Intracranial segment is patent with no significant stenosis. No aneurysm. Left anterior cerebral artery: Unremarkable. No occlusion or significant stenosis. No aneurysm. Left middle cerebral artery: Unremarkable. No occlusion or significant stenosis. No aneurysm. Left posterior cerebral artery: Unremarkable. No occlusion or significant stenosis. No aneurysm. Left vertebral artery: Unremarkable as visualized. Basilar artery: Unremarkable. No occlusion or significant stenosis. No aneurysm. IMPRESSION: Normal head CTA. Electronically signed by: Bo Villanueva MD 04/12/23 22:52 PM Neck CTA 04/12/23 21:45 Exam(s): CTA NECK With Contrast IV Amt: 120 ml optiay 320 EXAM: CT Angiography Neck With Intravenous Contrast CLINICAL HISTORY: Reason for exam: neuro deficit, acute stroke suspected. TECHNIQUE: Routine carotid CT angiography protocol was performed with intravenous contrast. NASCET criteria using the distal ICAs for comparison were used for evaluation of stenoses. Automated exposure control was utilized for the study. A dose lowering technique was utilized adhering to the principles of ALARA. MIP reconstructed images were created and reviewed. CONTRAST: Patient received 120 ml optiay 320 of IV contrast COMPARISON: None. FINDINGS: VASCULATURE: Right common carotid artery: Unremarkable. No occlusion or significant stenosis. No dissection. Right internal carotid artery: Unremarkable. Extracranial segment is patent with no occlusion or significant stenosis. No dissection. Right external carotid artery: Unremarkable. No occlusion. Right vertebral artery: Unremarkable. No occlusion or significant stenosis. No dissection. Left common carotid artery: Unremarkable. No occlusion or significant stenosis. No dissection. Left internal carotid artery: Unremarkable. Extracranial segment is patent with no occlusion or significant stenosis. No dissection. Left external carotid artery: Unremarkable. No occlusion. Left vertebral artery: Unremarkable. No occlusion or significant stenosis. No dissection. NECK: Bones/joints: Unremarkable. Soft tissues: Unremarkable. Lung apices: Clear. CAROTID STENOSIS REFERENCE USING NASCET CRITERIA: % ICA stenosis = (1 - narrowest ICA diameter/diameter of distal cervical ICA) x 100. Mild - <50% stenosis. Moderate - 50-69% stenosis. Severe - 70-94% stenosis. Near occlusion - 95-99% stenosis. Occluded - 100% stenosis. IMPRESSION: Negative CTA neck. Electronically signed by: Bo Villanueva MD 04/12/23 22:54 PM ECG Data Attestation: I personally reviewed and interpreted this ECG as follows: Indication: + altered mental status Rate (beats per minute): 99 Rhythm: + normal sinus ECG [place]: + Normal ECG ST segments: no ST depression, no ST elevation or no T-wave inversions Comparison ECG Date: from (10/22/2022) Change: no significant change Head Trauma GCS Score: 15 MDM Narrative This 37-year-old female patient presents to the emergency department today for evaluation of alteration in mental status. Upon arrival to the ED, the patient symptoms are starting to improve, but she is now developing headache. Her speech was slow and she was noticing spots in her vision. She has been working with the [facility] as well as outpatient providers for "diagnosis" due to some chronic neurologic deficits to include weakness on the left side. Patient has not yet received a diagnosis. Work-up here in the emergency department completed due to the patient's symptoms. CT, CT angiogram of the head and neck as well as extensive laboratory evaluation as above. EKG negative for evidence of ischemia. Labs generally unrevealing. Chest x-ray, per my interpretation, negative for acute abnormality. Low suspicion for stroke at this time given the patient's improvement in symptoms with no significant intervention. She did develop a headache while in the emergency department and I question complex migraine. We did also discuss the potential for adverse reaction to baclofen, TIA, or other neurologic condition. As the patient has not returned to baseline after several hours from the onset of symptoms, I recommended admission to the hospital for monitoring and further evaluation. The patient was uncertain at first if she wanted to stay, but after discussion with her , did agree to admission. [facility] Please see hospitalist dictation regarding ongoing management care of this patient. The chart was completed utilizing [employer] voice recognition software. Grammatical errors, random word insertions, pronoun errors, and incomplete sentences are an occasional consequence of this system due to software limitations, ambient noise, and hardware issues. Any formal questions or concerns about the content, text, or information contained within the body of this dictation should be directly addressed to the provider for clarification. Impression Headache, Visual disturbance, Slow rate of speech, Fatigue Discharge Plan Visit Data Chief Complaint: TIA Symptoms Stated Complaint: TROUBLE BREATHING,SLURRING SPEECH,VISIUAL ISSUES ED Provider: Ha G[facility] ED Midlevel Provider: Karena Wilkins Discharge Problem: Headache, Visual disturbance, Slow rate of speech, Fatigue Patient Disposition: Admitted As Inpatient Forms Stand Alone Forms: [facility] Prescriptions Prescriptions: No Action ibuprofen [Advil] 200 mg Tablet 200 mg PO DAILY PRN (Reason: Headache) calcium carbonate 500 mg calcium (1,250 mg) Tablet,Chewable 500 mg PO HS PRN (Reason: Dyspepsia) baclofen 10 mg tablet 10 mg PO TID pantoprazole 40 mg tablet,delayed release (DR/EC) 40 mg PO DAILY colchicine 0.6 mg tablet 0.6 mg PO BID Referrals Referrals: Bran uVong MD [Primary Care Provider] -
[2023-04-12 22:29] LABS: Troponin I High Sensitivity 2.8 pg/ml (0-14)
[2023-04-12 22:29] LABS: Appearance Urine Clear (Clear); Bilirubin Urine Negative (Negative); Blood Urine Negative (Negative); Color Urine Yellow; Glucose Urine UA Negative (Negative); Ketones Urine Negative (Negative); Leukocyte Esterase Urine Negative (Negative); Nitrite Urine Negative (Negative); Protein Urine Negative (Negative); Specific Gravity Urine 1.002 (1.000-1.030); Urobilinogen Urine Negative (Negative)
[2023-04-12 22:48] LABS: Amphetamines+Metham, Urine Neg (Neg); Barbiturates, Urine Neg (Neg); Benzodiazepine, Urine Neg (Neg); Cocaine, Urine Neg (Neg); MDMA (Ecstacy), Urine Neg (Neg); Methadone, Urine Neg (Neg); Opiate, Urine Neg (Neg); Phencyclidine, Urine Neg (Neg)
--- NOTE | 2023-04-12 22:53 | CT Scan Report ---
Exam(s): CTA HEAD With Contrast IV Amt: 120 ml optiray 320 EXAM: CT Angiography Head With Intravenous Contrast CLINICAL HISTORY: Reason for exam: neuro deficit, acute stroke suspected. TECHNIQUE: Axial computed tomographic angiography images of the head with intravenous contrast. Automated exposure control was utilized for the study. A dose lowering technique was utilized adhering to the principles of ALARA. MIP reconstructed images were created and reviewed. CONTRAST: Patient received 120 ml optiray 320 of IV contrast COMPARISON: No relevant prior studies available. FINDINGS: Right internal carotid artery: No acute findings. Intracranial segment is patent with no significant stenosis. No aneurysm. Right anterior cerebral artery: Unremarkable. No occlusion or significant stenosis. No aneurysm. Right middle cerebral artery: Unremarkable. No occlusion or significant stenosis. No aneurysm. Right posterior cerebral artery: Unremarkable. No occlusion or significant stenosis. No aneurysm. Right vertebral artery: Unremarkable as visualized. Left internal carotid artery: No acute findings. Intracranial segment is patent with no significant stenosis. No aneurysm. Left anterior cerebral artery: Unremarkable. No occlusion or significant stenosis. No aneurysm. Left middle cerebral artery: Unremarkable. No occlusion or significant stenosis. No aneurysm. Left posterior cerebral artery: Unremarkable. No occlusion or significant stenosis. No aneurysm. Left vertebral artery: Unremarkable as visualized. Basilar artery: Unremarkable. No occlusion or significant stenosis. No aneurysm. IMPRESSION: Normal head CTA. Electronically signed by: Bo Villanueva MD 04/12/23 22:52 PM
--- NOTE | 2023-04-12 22:54 | CT Scan Report ---
Exam(s): CTA NECK With Contrast IV Amt: 120 ml optiay 320 EXAM: CT Angiography Neck With Intravenous Contrast CLINICAL HISTORY: Reason for exam: neuro deficit, acute stroke suspected. TECHNIQUE: Routine carotid CT angiography protocol was performed with intravenous contrast. NASCET criteria using the distal ICAs for comparison were used for evaluation of stenoses. Automated exposure control was utilized for the study. A dose lowering technique was utilized adhering to the principles of ALARA. MIP reconstructed images were created and reviewed. CONTRAST: Patient received 120 ml optiay 320 of IV contrast COMPARISON: None. FINDINGS: VASCULATURE: Right common carotid artery: Unremarkable. No occlusion or significant stenosis. No dissection. Right internal carotid artery: Unremarkable. Extracranial segment is patent with no occlusion or significant stenosis. No dissection. Right external carotid artery: Unremarkable. No occlusion. Right vertebral artery: Unremarkable. No occlusion or significant stenosis. No dissection. Left common carotid artery: Unremarkable. No occlusion or significant stenosis. No dissection. Left internal carotid artery: Unremarkable. Extracranial segment is patent with no occlusion or significant stenosis. No dissection. Left external carotid artery: Unremarkable. No occlusion. Left vertebral artery: Unremarkable. No occlusion or significant stenosis. No dissection. NECK: Bones/joints: Unremarkable. Soft tissues: Unremarkable. Lung apices: Clear. CAROTID STENOSIS REFERENCE USING NASCET CRITERIA: % ICA stenosis = (1 - narrowest ICA diameter/diameter of distal cervical ICA) x 100. Mild - <50% stenosis. Moderate - 50-69% stenosis. Severe - 70-94% stenosis. Near occlusion - 95-99% stenosis. Occluded - 100% stenosis. IMPRESSION: Negative CTA neck. Electronically signed by: Bo Villanueva MD 04/12/23 22:54 PM
[2023-04-12 23:58] LABS: Lyme Ab IgG w/WB Rflx Negative (Negative); Lyme Ab IgM w/WB Rflx Negative (Negative)
[2023-04-13 00:21] LABS: Pregnancy Test, Serum Negative (Negative)
[2023-04-13] MEDS ORDERED: diphenhydrAMINE 50 MG/ML VIAL IV STA (00:24)
[2023-04-13] MEDS ORDERED: KETOROLAC TROMETHAMINE 15 MG/ML VIAL IV STA (00:24)
[2023-04-13] MEDS ORDERED: PROCHLORPERAZINE 2 ML IV ONE (00:24)
[2023-04-13] MEDS ORDERED: MAGNESIUM SULFATE / D5W 1 GM/100 ML BAG IV ONE (00:31)
[2023-04-13] MEDS ORDERED: NSS + 20MEQ KCL 20 MEQ/1,000 ML BAG IV ONE (00:31)
[2023-04-13] MEDS ORDERED: ASPIRIN 81 MG CHEW PO STA (01:43)
--- NOTE | 2023-04-13 01:51 | History & Physical Report ---
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 Heparin subcu Full code Patient requesting updates providers. Mr. Waqas Lara, contact #[phone]. Text document was generated using [employer] voice recognition software. It may contain grammatical or spelling errors. Kindly contact undersigned for clarification of any documentation item in question. History of Present Illness Chief Complaint: strokelike symptoms Primary Care Provider: Bran Vuong MD History obtained from patient, family, and records. 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 Last confinement September 2022 for chest pain attributed to viral myocarditis/pericarditis. Patient discharged on ibuprofen. Colchicine later added to patient's regimen. Patient has migraine headaches since age 15. Migraine attacks described as generalized headache with pressure behind the eyes. Currently occurring twice a month. Precipitated by stress and relieved by rest and eye closure. Last episode was 2 weeks ago. Patient later developed left upper extremity weakness, episodic head bobbing. Unremarkable brain MRIs over the years (last one was in September 2022). Unremarkable CSF analysis on IR guided LP last November 2022. Transformed migraine versus possible functional/conversion disorder as per outpatient neurology notes. Patient has also seen a [place] neurologist for her issues. No explanation for her symptoms as per . Around dinnertime last night, patient noticed dark spots in her vision. She could not read letters. Parts of her 's face were invisible as per . Patient later noted to be aphasic, having trouble getting words out. Right-sided facial numbness with left upper extremity weakness. No unusual stress at home. Migraine attacks have never presented with the symptoms. Patient denies chest pain, SOB, abdominal pain. Patient brought to the ER by for evaluation. Symptoms later abated followed by achy headache symptoms. Patient currently feeling much better after IV Toradol administration at the ER. No recollection of recent tick bites. No hormonal contraception. Medical History as above Surgical History : None Family History : Heart disease Personal/Social history : Non-smoker, no EtOH intake, patient to start new job at the [employer] this week. Allergies Allergy/AdvReac Type Severity Reaction Status Date / Time chocolate flavor Allergy Severe bleeding Verified 01/25/23 11:12 cysts under skin stomach pain egg Allergy Severe ANAPHYLAXIS Verified 01/25/23 11:12 Penicillins Allergy Intermediate . 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), with abnormal movement Migraine Sjogren syndrome with keratoconjunctivitis Family History Father Heart disease Social History Smoking Status: Never smoker Second Hand Exposure: No; Hx Alcohol Use: No Hx Substance Use: No Preferred Language: Luxembourgish Communication Ability: Effective Electro Mechanical Designer Required: No Beliefs That Will Affect Care: None Current Living Situation: Spouse Other Information That Helps Us Care for You: No Feels Safe at Home: Yes Safety Concerns: Feels Safe At This Time Assistive Devices: None Review of Systems Review of Systems: As per HPI, all other systems reviewed and negative Physical Exam Physical Exam: GENERAL: slightly uncomfortable, eyes closed, underweight, no respiratory distress SKIN: Normal color, warm HEENT: [place] palpebral conjunctivae, no ptosis, dry buccal mucosa NECK : Supple, no tenderness CHEST : CTA, no tenderness HEART : RRR, no obvious murmurs ABDOMEN: no distention, nontender EXTREMITIES : No LE swelling/tenderness, no other conspicuous deformities noted NEUROLOGIC : Coherent, no facial asymmetry, negative pronator drift, gait and stance not assessed Results & Data Results & Data Vital Signs (Past 12 Hours) Vital Signs Temp Pulse Resp BP Pulse Ox O2 Del Method 04/13/23 01:00 63 16 111/71 97 04/13/23 00:30 77 18 116/78 98 04/13/23 00:48 93 H 04/13/23 00:00 88 14 122/84 100 04/12/23 23:04 70 16 132/85 100 04/12/23 22:32 69 16 127/73 100 04/12/23 22:00 80 18 137/87 91 04/12/23 21:40 70 19 93 04/12/23 21:30 82 16 137/83 100 04/12/23 21:15 73 16 140/83 100 04/12/23 21:03 75 22 131/85 100 04/12/23 20:51 108 H 04/12/23 20:35 36.9 C 94 H 18 140/94 99 Room Air Laboratory Results Laboratory Results WBC 6.61 K/ul (4.8-10.8) 04/12/23 20:55 RBC 4.20 M/uL (4.20-5.40) 04/12/23 20:55 Hgb 12.2 g/dl (12.0-16.0) 04/12/23 20:55 Hct 34.8 % (37.0-47.0) L 04/12/23 20:55 MCV 82.9 fL (80.0-100.0) 04/12/23 20:55 MCH 29.0 pg (25.0-34.0) 04/12/23 20:55 MCHC 35.1 g/dL (32.0-36.0) 04/12/23 20:55 RDW Std Deviation 36.3 fL (36.4-46.3) L 04/12/23 20:55 RDW Coeff of Andre 12.0 % (11.5-14.5) 04/12/23 20:55 Plt Count 280 K/uL (130-400) 04/12/23 20:55 MPV 9.9 fL (9.4-12.4) 04/12/23 20:55 PT 11.0 Seconds (9.0-12.0) 04/12/23 20:55 INR 1.0 (0.9-1.1) 04/12/23 20:55 APTT 25.4 Seconds (21.0-31.0) 04/12/23 20:55 PTT Ratio 0.9 04/12/23 20:55 Sodium 136 mmol/L (136-145) 04/12/23 20:55 Potassium 3.3 mmol/L (3.5-5.1) L 04/12/23 20:55 Chloride 102 mmol/L (98-107) 04/12/23 20:55 Carbon Dioxide 23 mmol/L (21-32) 04/12/23 20:55 Anion Gap 11 (3-11) 04/12/23 20:55 BUN 8 mg/dl (6-23) 04/12/23 20:55 Creatinine 0.65 mg/dl (0.6-1.2) 04/12/23 20:55 Est Cr Clr Drug Dosing 95.5 ml/min 04/12/23 20:55 Est GFR ( Amer) 133.3 ml/min 04/12/23 20:55 Est GFR (Non-Af Amer) 115.0 ml/min 04/12/23 20:55 BUN/Creatinine Ratio 12.3 (10-20) 04/12/23 20:55 Glucose 103 mg/dl (70-99(Fasting)) H 04/12/23 20:55 POC Glucose 116 mg/dl (70-99) H 04/12/23 20:52 Calcium 9.7 mg/dl (8.6-10.3) 04/12/23 20:55 Magnesium 1.8 mg/dl (1.7-2.4) 04/12/23 20:55 Total Bilirubin 0.4 mg/dl (0.2-1.0) 04/12/23 20:55 AST 20 U/L (13-39) 04/12/23 20:55 ALT 19 U/L (7-52) 04/12/23 20:55 Alkaline Phosphatase 41 U/L (34-104) 04/12/23 20:55 Troponin I High Sens 2.8 pg/ml (0-14) 04/12/23 20:55 Total Protein 7.4 gm/dl (6.0-8.3) 04/12/23 20:55 Albumin 4.7 gm/dl (3.4-5.0) 04/12/23 20:55 Globulin 2.7 gm/dl (2.5-4.0) 04/12/23 20:55 Albumin/Globulin Ratio 1.7 (0.9-2) 04/12/23 20:55 HCG, Qual Negative (Negative) 04/12/23 22:54 Urine Color Yellow 04/12/23 21:01 Urine Appearance Clear (Clear) 04/12/23 21:01 Urine pH 8.0 (4.5-7.5) H 04/12/23 21:01 Ur Specific [place] 1.002 (1.000-1.030) 04/12/23 21:01 Urine Protein Negative (Negative) 04/12/23 21:01 Urine Glucose (UA) Negative (Negative) 04/12/23 21:01 Urine Ketones Negative (Negative) 04/12/23 21:01 Urine Blood Negative (Negative) 04/12/23 21:01 Urine Nitrite Negative (Negative) 04/12/23 21:01 Urine Bilirubin Negative (Negative) 04/12/23 21:01 Urine Urobilinogen Negative (Negative) 04/12/23 21:01 Ur Leukocyte Esterase Negative (Negative) 04/12/23 21:01 Urine Opiates Screen Neg (Neg) 04/12/23 21:01 Ur Methadone, Qual Neg (Neg) 04/12/23 21:01 Urine Barbiturates Neg (Neg) 04/12/23 21:01 Ur Phencyclidine (PCP) Neg (Neg) 04/12/23 21:01 U Amphetamin/Meth Scrn Neg (Neg) 04/12/23 21:01 MDMA (Ecstasy) Screen Neg (Neg) 04/12/23 21:01 U Benzodiazepines Scrn Neg (Neg) 04/12/23 21:01 Ur Cocaine Metabolite Neg (Neg) 04/12/23 21:01 U Marijuana (THC) Screen Neg (Neg) 04/12/23 21:01 Anaplasma Smear See Comment 04/12/23 22:54 Babesia Smear See Comment 04/12/23 22:54 Lyme Disease IgG Ab Negative (Negative) 04/12/23 22:54 Lyme Disease IgM Ab Negative (Negative) 04/12/23 22:54 SARS-CoV-2, RNA, NAAT NEGATIVE (NEGATIVE) 04/13/23 01:02 Blood Type A Positive 04/12/23 22:54 Antibody Screen NEGATIVE 04/12/23 22:[address] 04/12/23 21:01 Exam(s): CT HEAD Without Contrast EXAM: CT Head Without Intravenous Contrast CLINICAL HISTORY: Reason for exam: Neuro deficit, acute, stroke suspected. TECHNIQUE: Axial computed tomography images of the head/brain without intravenous contrast. CTDI is 38.9 mGy and DLP is 547.75 mGy-cm. Automated exposure control was utilized for the study. A dose lowering technique was utilized adhering to the principles of ALARA. COMPARISON: CT head on 01/25/2023 FINDINGS: Brain: No acute infarct or hemorrhage. No extra-axial fluid collection. No mass effect or midline shift. Ventricles and sulci: Normal. No ventriculomegaly or intraventricular hemorrhage. Bones: Normal. No bony lesion or acute fracture. Subcutaneous tissues: Normal. Sinuses: Mild to moderate mucosal thickening in right greater than left ethmoid air cells and frontal sinuses. Mastoid air cells: Normal. Orbits: Grossly unremarkable. IMPRESSION: No acute intracranial abnormality. Electronically signed by: Rafael Gaxiola M.D. 04/12/23 21:33 PM Head CTA 04/12/23 21:45 Exam(s): CTA HEAD With Contrast IV Amt: 120 ml optiray 320 EXAM: CT Angiography Head With Intravenous Contrast CLINICAL HISTORY: Reason for exam: neuro deficit, acute stroke suspected. TECHNIQUE: Axial computed tomographic angiography images of the head with intravenous contrast. Automated exposure control was utilized for the study. A dose lowering technique was utilized adhering to the principles of ALARA. MIP reconstructed images were created and reviewed. CONTRAST: Patient received 120 ml optiray 320 of IV contrast COMPARISON: No relevant prior studies available. FINDINGS: Right internal carotid artery: No acute findings. Intracranial segment is patent with no significant stenosis. No aneurysm. Right anterior cerebral artery: Unremarkable. No occlusion or significant stenosis. No aneurysm. Right middle cerebral artery: Unremarkable. No occlusion or significant stenosis. No aneurysm. Right posterior cerebral artery: Unremarkable. No occlusion or significant stenosis. No aneurysm. Right vertebral artery: Unremarkable as visualized. Left internal carotid artery: No acute findings. Intracranial segment is patent with no significant stenosis. No aneurysm. Left anterior cerebral artery: Unremarkable. No occlusion or significant stenosis. No aneurysm. Left middle cerebral artery: Unremarkable. No occlusion or significant stenosis. No aneurysm. Left posterior cerebral artery: Unremarkable. No occlusion or significant stenosis. No aneurysm. Left vertebral artery: Unremarkable as visualized. Basilar artery: Unremarkable. No occlusion or significant stenosis. No aneurysm. IMPRESSION: Normal head CTA. Electronically signed by: Bo Villanueva MD 04/12/23 22:52 PM Neck CTA 04/12/23 21:45 Exam(s): CTA NECK With Contrast IV Amt: 120 ml optiay 320 EXAM: CT Angiography Neck With Intravenous Contrast CLINICAL HISTORY: Reason for exam: neuro deficit, acute stroke suspected. TECHNIQUE: Routine carotid CT angiography protocol was performed with intravenous contrast. NASCET criteria using the distal ICAs for comparison were used for evaluation of stenoses. Automated exposure control was utilized for the study. A dose lowering technique was utilized adhering to the principles of ALARA. MIP reconstructed images were created and reviewed. CONTRAST: Patient received 120 ml optiay 320 of IV contrast COMPARISON: None. FINDINGS: VASCULATURE: Right common carotid artery: Unremarkable. No occlusion or significant stenosis. No dissection. Right internal carotid artery: Unremarkable. Extracranial segment is patent with no occlusion or significant stenosis. No dissection. Right external carotid artery: Unremarkable. No occlusion. Right vertebral artery: Unremarkable. No occlusion or significant stenosis. No dissection. Left common carotid artery: Unremarkable. No occlusion or significant stenosis. No dissection. Left internal carotid artery: Unremarkable. Extracranial segment is patent with no occlusion or significant stenosis. No dissection. Left external carotid artery: Unremarkable. No occlusion. Left vertebral artery: Unremarkable. No occlusion or significant stenosis. No dissection. NECK: Bones/joints: Unremarkable. Soft tissues: Unremarkable. Lung apices: Clear. CAROTID STENOSIS REFERENCE USING NASCET CRITERIA: % ICA stenosis = (1 - narrowest ICA diameter/diameter of distal cervical ICA) x 100. Mild - <50% stenosis. Moderate - 50-69% stenosis. Severe - 70-94% stenosis. Near occlusion - 95-99% stenosis. Occluded - 100% stenosis. IMPRESSION: Negative CTA neck. Electronically signed by: Bo Villanueva MD 04/12/23 22:54 PM Diagnostic Findings EKG could not be located at time of dictation
[2023-04-13] MEDS ORDERED: KETOROLAC TROMETHAMINE 15 MG/ML VIAL IV PRN (01:56)
[2023-04-13] MEDS ORDERED: ACETAMINOPHEN W/CODEINE #3 1 TAB PO PRN (01:56)
[2023-04-13] MEDS ORDERED: LORazepam 0.5 MG TAB PO PRN (01:56)
[2023-04-13] MEDS ORDERED: PROMETHAZINE HCL 6.25 MG in SODIUM CHLORIDE 0.9% 50 ML IV PRN (01:56)
[2023-04-13] MEDS ORDERED: ACETAMINOPHEN 325 MG TAB PO PRN (03:27)
[2023-04-13] MEDS ORDERED: GADOBUTROL 65ML VIAL IV ONE (04:34)
[2023-04-13] MEDS ORDERED: HEPARIN SOD 5,000 UNIT/0.5 ML VIAL SQ SCH (06:00)
--- NOTE | 2023-04-13 06:29 | Magnetic Resonance Report ---
Exam(s): MRI HEAD W/WO Contrast IV Amt: 6.5cc gadavist EXAM: MR Head Without and With Intravenous Contrast CLINICAL HISTORY: Reason for exam: haro, tia sx. TECHNIQUE: Magnetic resonance images of the head/brain without and with intravenous contrast in multiple planes. CONTRAST: Patient received 6.5cc gadavist of IV contrast COMPARISON: CT head performed 04/12/23 FINDINGS: Brain: Few foci of increased T2/FLAIR signal within the periventricular and juxtacortical white matter, nonspecific in a patient this age. No hemorrhage. No acute infarct. No abnormal enhancement. No midline shift. Ventricles: Unremarkable. No ventriculomegaly. Bones/joints: Unremarkable. Sinuses: Unremarkable as visualized. No acute sinusitis. Mastoid air cells: Unremarkable as visualized. No mastoid effusion. Orbits: Unremarkable as visualized. IMPRESSION: Few foci of increased T2/FLAIR signal within the periventricular and juxtacortical white matter, nonspecific in a patient this age. Findings have been reported in patients who suffer from migraine headaches, sequela from prior trauma/inflammation or demyelinating disease, amongst other etiologies. Electronically signed by: Addison Tabares M.D. 04/13/23 06:28 AM
--- NOTE | 2023-04-13 06:51 | XRay Report ---
XR chest 1V portable CLINICAL HISTORY: stroke alert COMPARISON STUDY: Chest radiograph November 23, 2022. FINDINGS: Lung volumes are normal. Lungs are clear. There is no pneumothorax or pleural effusion. Car diac size is normal. Mediastinal contours are normal. There is no evidence for pulmonary edema. IMPRESSION: No acute cardiopulmonary findings. ACT 112: Negative or not required by law. Electronically signed by: Adryan Casey M.D. 04/13/2023 6:50 AM
[2023-04-13 07:55] LABS: Basophils # (auto) 0.03 K/uL (0-0.2); Basophils % (auto) 0.5 %; Eosinophils # (auto) 0.13 K/uL (0-0.50); Eosinophils % (auto) 2.3 %; Hematocrit (blood only) 32.2 % (37.0-47.0); Immature Granulocytes # (auto) 0.02 K/uL (0.01-0.20); Immature Granulocytes % (auto) 0.3 %; Lymphocytes # (auto) 1.76 K/uL (1.2-3.4); Lymphocytes % (auto) 30.5 %; Mean Corpuscular Hemoglobin 29.3 pg (25.0-34.0); Mean Corpuscular Hgb Conc 34.2 g/dL (32.0-36.0); Mean Corpuscular Volume 85.6 fL (80.0-100.0); Mean Platelet Volume 9.9 fL (9.4-12.4); Monocytes # (auto) 0.28 K/uL (0.11-0.59); Monocytes % (auto) 4.9 %; Neutrophils # (auto) 3.55 K/uL (1.40-6.50); Neutrophils % (auto) 61.5 %; Platelet Count 211 K/uL (130-400); RDW Coefficient of Variation 12.1 % (11.5-14.5); Red Blood Count 3.76 M/uL (4.20-5.40); White Blood Count 5.77 K/ul (4.8-10.8)
[2023-04-13 08:02] LABS: BUN Creatinine Ratio 10.2 (10-20); Calcium 8.8 mg/dl (8.6-10.3); Chol HDL Ratio 3.4 (0-5); Creatinine Clr Calc Pharmacy 97.2 ml/min; Est GFR (African American) 137.6 ml/min; Est GFR (Non-African American) 118.7 ml/min; Potassium 3.8 mmol/L (3.5-5.1)
[2023-04-13] MEDS ORDERED: PANTOprazole 40 MG TAB PO SCH (09:00)
[2023-04-13] MEDS ORDERED: COLCHICINE 0.6 MG TAB PO SCH (09:00)
--- NOTE | 2023-04-13 09:13 | Neurology Consultation ---
Date of Consultation April 13, 2023 Assessment & Plan (1) Migraine variant: Presentation consistent with migraine variant/complex migraine. Recommended migraine prophylaxis, patient amenable to trying daily magnesium 400mg supplements rather than pharmacologic agents. No further neurologic workup. Can be referred to neurology if she wishes. We will sign off. Telehealth Consultation Telehealth Information Telehealth Information: I performed this visit using a real-time telehealth connection between my location and the patients location ([facility]). After connecting through interactive tele-video, patient was identified by name and date of and/or wristband check.Patient (or authorized healthcare procurement representative) was informed that this was a telemedicine visit and it was being conducted confidentially over secure lines. My office door was closed and no one else was present in the room with me.Patient (or authorized healthcare procurement representative) provided consent to proceed with the visit, expressed an understanding of privacy and security of the telemedicine visit, and gave permission to have a hospital procurement representative in the room in order to assist with the visit and to conduct portions of the visit, as needed. I informed the patient (or authorized healthcare procurement representative) that I reviewed their record and presented the opportunity for them to ask any questions regarding the visit today. The patient agreed to participate. History of Present Illness Reason for Consultation: Migraine Requesting Physician: Dr. Caro Attending Physician: Scott Caro MD History of Present Illness Emely Lara is a 37 yo F presenting with transient visual disturbance in the setting of migraine headache. She gets 2 headaches a month and typically takes medication and lies down. This is the first headache preceeded by neurologic symptoms. She feels well today with no further neurologic symptoms or headache. Allergies Allergy/AdvReac Type Severity Reaction Status Date / Time chocolate flavor Allergy Severe bleeding Verified 01/25/23 11:12 cysts under skin stomach pain egg Allergy Severe ANAPHYLAXIS Verified 01/25/23 11:12 Penicillins Allergy Intermediate . 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), with abnormal movement Migraine Sjogren syndrome with keratoconjunctivitis Family History Father Heart disease Social History Smoking Status: Never smoker Second Hand Exposure: No; Hx Alcohol Use: No Hx Substance Use: No Preferred Language: Georgian Communication Ability: Effective 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 Oriented to person, place, and time. Fluent. Comprehension intact. Affect appropriate. Cranial Nerves: II: pupils 3/3 to 2/2 III/IV/: Versions intact without nystagmus VII: Facial expression symmetric VIII: Hearing intact to voice Motor: Strength was symmetric and antigravity spontaneous movements. There were no abnormal movements. Results & Data Vital Signs (Past 12 Hours) Vital Signs Temp Pulse Pulse Resp BP BP BP 04/13/23 07:58 67 04/13/23 07:46 36.8 C 82 16 103/64 04/13/23 05:07 75 04/13/23 03:29 36.5 C 64 18 119/83 04/13/23 02:00 70 14 118/69 04/13/23 01:30 67 14 116/86 04/13/23 01:00 63 16 111/71 04/13/23 00:30 77 18 116/78 04/13/23 00:48 93 H 04/13/23 00:00 88 14 122/84 04/12/23 23:04 70 16 132/85 04/12/23 22:32 69 16 127/73 04/12/23 22:00 80 18 137/87 06/20/23 21:40 70 19 04/12/23 21:30 82 16 137/83 04/12/23 21:15 73 16 140/83 Pulse Ox O2 Del Method 04/13/23 07:58 04/13/23 07:46 96 Room Air 04/13/23 05:07 04/13/23 03:29 97 Room Air 04/13/23 02:00 97 04/13/23 01:30 98 04/13/23 01:00 97 04/13/23 00:30 98 04/13/23 00:48 04/13/23 00:00 100 04/12/23 23:04 100 04/12/23 22:32 100 04/12/23 22:00 91 04/12/23 21:40 93 04/12/23 21:30 100 04/12/23 21:15 100 Laboratory Results Abnormal lab results 04/12/23 04/12/23 04/12/23 Range/Units 20:52 20:55 20:55 RBC (4.20-5.40) M/uL Hgb (12.0-16.0) g/dl Hct 34.8 L (37.0-47.0) % RDW Std Deviation 36.3 L (36.4-46.3) fL Potassium 3.3 L (3.5-5.1) mmol/L Chloride (98-107) mmol/L Creatinine (0.6-1.2) mg/dl Glucose 103 H (70-99(Fasting)) mg/dl POC Glucose 116 H (70-99) mg/dl Urine pH (4.5-7.5) 04/12/23 04/13/23 04/13/23 Range/Units 21:01 07:26 07:26 RBC 3.76 L (4.20-5.40) M/uL Hgb 11.0 L (12.0-16.0) g/dl Hct 32.2 L (37.0-47.0) % RDW Std Deviation (36.4-46.3) fL Potassium (3.5-5.1) mmol/L Chloride 108 H (98-107) mmol/L Creatinine 0.59 L (0.6-1.2) mg/dl Glucose (70-99(Fasting)) mg/dl POC Glucose (70-99) mg/dl Urine pH 8.0 H (4.5-7.5) Diagnostic Findings MR brain - unremarkable
--- NOTE | 2023-04-13 11:55 | Hospitalist Progress Note ---
Date of Service April 13, 2023 Assessment & Plan (1) Headache: Plan: Complex migraine/migraine variant -MRI Brain:Few foci of increased T2/FLAIR signal within the periventricular and juxtacortical white matter, nonspecific in a patient this age. Findings have been reported in patients who suffer from migraine headaches, sequela from prior trauma/inflammation or demyelinating disease, amongst other etiologies. --Neck CTA:Negative CTA neck. --Head CTA:Normal head CTA. --Anaplasmosis, Babesia, Lyme screen negative --ECHO: pending --Serological test for Q fever, Rickettsia pending Appreciate neurology input PT OT, speech eval completed Plan to be started on magnesium, vitamin B2 supplement for prophylaxis Advised to follow-up with neurology as outpatient Hypokalemia Resolved Replete electrolytes as needed Functional movement disorder as per records Also evaluated at [facility] previously Follows with neurology as outpatient On baclofen as needed Sjogren syndrome Follows with party planner as outpatient Offered Plaquenil previously, patient currently prefers no medication H/O Myocarditis Continue colchicine Has scheduled follow-up appointment with cardiology as outpatient DVT Px: Heparin SQ Code Status Full code Disposition Home Admission and Anticipated Discharge Date Admission Date: April 13, 2023 Subjective Patient is seen and examined at bedside States feeling much better today Speech back to baseline Left-sided weakness resolved Headache resolved, vision back to baseline Offers no other complaints Denies any chest pain, dyspnea, dizziness, abdominal pain, nausea, vomiting Discussed with neurology today Review of Systems Review of Systems: All systems reviewed & are unremarkable except as noted in Subjective Physical Exam Physical Exam: Physical Exam: Vitals signs as noted above General Appearance:Thin, no apparent distress Head: normocephalic, Atraumatic Eyes: normal inspection, EOMI Neck: supple, Trachea midline Respiratory/Chest: Normal breath sounds, CTA, No accessory muscle use Cardiovascular: S1, S2, No murmur Abdomen/GI:Soft, Non tender, Bowel sounds present Extremities/Musculoskeletal:normal inspection, no edema Neurologic/Psych:AAOX3, grossly no focal neurological deficits Skin: normal color, warm Results & Data Results & Data Vital Signs (Past 12 Hours) Vital Signs Temp Pulse Pulse Resp BP BP BP 04/13/23 11:34 36.7 C 75 16 114/77 04/13/23 11:26 04/13/23 07:58 67 04/13/23 07:46 36.8 C 82 16 103/64 04/13/23 05:07 75 04/13/23 03:29 36.5 C 64 18 119/83 04/13/23 02:00 70 14 118/69 04/13/23 01:30 67 14 116/86 04/13/23 01:00 63 16 111/71 04/13/23 00:30 77 18 116/78 04/13/23 00:48 93 H 04/13/23 00:00 88 14 122/84 Pulse Ox Pulse Ox O2 Del Method 04/13/23 11:34 97 Room Air 04/13/23 11:26 97 04/13/23 07:58 04/13/23 07:46 96 Room Air 04/13/23 05:07 04/13/23 03:29 97 Room Air 04/13/23 02:00 97 04/13/23 01:30 98 04/13/23 01:00 97 04/13/23 00:30 98 04/13/23 00:48 04/13/23 00:00 100 Laboratory Results Short CBC 04/12/23 04/13/23 Range/Units 20:55 07:26 WBC 6.61 5.77 (4.8-10.8) K/ul Hgb 12.2 11.0 L (12.0-16.0) g/dl Hct 34.8 L 32.2 L (37.0-47.0) % Plt Count 280 211 (130-400) K/uL BMP 04/12/23 04/13/23 20:55 07:26 Sodium 136 138 Potassium 3.3 L 3.8 Chloride 102 108 H Carbon Dioxide 23 26 BUN 8 6 Creatinine 0.65 0.59 L Glucose 103 H 92 Calcium 9.7 8.8 Liver Function 04/12/23 Range/Units 20:55 Total Bilirubin 0.4 (0.2-1.0) mg/dl AST 20 (13-39) U/L ALT 19 (7-52) U/L Alkaline Phosphatase 41 (34-104) U/L Albumin 4.7 (3.4-5.0) gm/dl Urine 04/12/23 Range/Units 21:01 Urine Color Yellow Urine Appearance Clear (Clear) Urine pH 8.0 H (4.5-7.5) Ur Specific [place] 1.002 (1.000-1.030) Urine Protein Negative (Negative) Urine Glucose (UA) Negative (Negative)
--- NOTE | 2023-04-13 12:24 | Discharge Summary ---
Date of Service April 13, 2023 Admission HPI Per Admitting Provider History obtained from patient, family, and records. 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 Last confinement September 2022 for chest pain attributed to viral myocarditis/pericarditis. Patient discharged on ibuprofen. Colchicine later added to patient's regimen. Patient has migraine headaches since age 15. Migraine attacks described as generalized headache with pressure behind the eyes. Currently occurring twice a month. Precipitated by stress and relieved by rest and eye closure. Last episode was 2 weeks ago. Patient later developed left upper extremity weakness, episodic head bobbing. Unremarkable brain MRIs over the years (last one was in September 2022). Unremarkable CSF analysis on IR guided LP last November 2022. Transformed migraine versus possible functional/conversion disorder as per outpatient neurology notes. Patient has also seen a [facility] neurologist for her issues. No explanation for her symptoms as per . Around dinnertime last night, patient noticed dark spots in her vision. She could not read letters. Parts of her 's face were invisible as per . Patient later noted to be aphasic, having trouble getting words out. Right-sided facial numbness with left upper extremity weakness. No unusual stress at home. Migraine attacks have never presented with the symptoms. Patient denies chest pain, SOB, abdominal pain. Patient brought to the ER by for evaluation. Symptoms later abated followed by achy headache symptoms. Patient currently feeling much better after IV Toradol administration at the ER. No recollection of recent tick bites. No hormonal contraception. Medical History as above Surgical History : None Family History : Heart disease Personal/Social history : Non-smoker, no EtOH intake, patient to start new job at the [employer] this week. Admission Exam Per Admitting Provider GENERAL: slightly uncomfortable, eyes closed, underweight, no respiratory distress SKIN: Normal color, warm HEENT: [place] palpebral conjunctivae, no ptosis, dry buccal mucosa NECK : Supple, no tenderness CHEST : CTA, no tenderness HEART : RRR, no obvious murmurs ABDOMEN: no distention, nontender EXTREMITIES : No LE swelling/tenderness, no other conspicuous deformities noted NEUROLOGIC : Coherent, no facial asymmetry, negative pronator drift, gait and stance not assessed Principal Diagnosis Complex migraine Strokelike symptoms Discharge Data Allergies Allergy/AdvReac Type Severity Reaction Status Date / Time chocolate flavor Allergy Severe bleeding Verified 01/25/23 11:12 cysts under skin stomach pain egg Allergy Severe ANAPHYLAXIS Verified 01/25/23 11:12 Penicillins Allergy Intermediate . Verified 01/25/23 11:12 Consultations 04/13/23 00:25 ED Decision to Admit Stat 04/13/23 03:27 Consult Neurology Routine Procedures Performed Laboratory Results WBC 5.77 K/ul (4.8-10.8) 04/13/23 07:26 RBC 3.76 M/uL (4.20-5.40) L 04/13/23 07:26 Hgb 11.0 g/dl (12.0-16.0) L 04/13/23 07:26 Hct 32.2 % (37.0-47.0) L 04/13/23 07:26 MCV 85.6 fL (80.0-100.0) 04/13/23 07:26 MCH 29.3 pg (25.0-34.0) 04/13/23 07:26 MCHC 34.2 g/dL (32.0-36.0) 04/13/23 07:26 RDW Std Deviation 38.0 fL (36.4-46.3) 04/13/23 07:26 RDW Coeff of Andre 12.1 % (11.5-14.5) 04/13/23 07:26 Plt Count 211 K/uL (130-400) 04/13/23 07:26 MPV 9.9 fL (9.4-12.4) 04/13/23 07:26 Immature Gran % (Auto) 0.3 % 04/13/23 07:26 Neut % (Auto) 61.5 % 04/13/23 07:26 Lymph % (Auto) 30.5 % 04/13/23 07:26 Dixie % (Auto) 4.9 % 04/13/23 07:26 Eos % (Auto) 2.3 % 04/13/23 07:26 Baso % (Auto) 0.5 % 04/13/23 07:26 Neut # (Auto) 3.55 K/uL (1.40-6.50) 04/13/23 07:26 Lymph # (Auto) 1.76 K/uL (1.2-3.4) 04/13/23 07:26 Dixie # (Auto) 0.28 K/uL (0.11-0.59) 04/13/23 07:26 Eos # (Auto) 0.13 K/uL (0-0.50) 04/13/23 07:26 Baso # (Auto) 0.03 K/uL (0-0.2) 04/13/23 07:26 Immature Gran # (Auto) 0.02 K/uL (0.01-0.20) 04/13/23 07:26 PT 11.0 Seconds (9.0-12.0) 04/12/23 20:55 INR 1.0 (0.9-1.1) 04/12/23 20:55 APTT 25.4 Seconds (21.0-31.0) 04/12/23 20:55 PTT Ratio 0.9 04/12/23 20:55 Sodium 138 mmol/L (136-145) 04/13/23 07:26 Potassium 3.8 mmol/L (3.5-5.1) 04/13/23 07:26 Chloride 108 mmol/L (98-107) H 04/13/23 07:26 Carbon Dioxide 26 mmol/L (21-32) 04/13/23 07:26 Anion Gap 4 (3-11) 04/13/23 07:26 BUN 6 mg/dl (6-23) 04/13/23 07:26 Creatinine 0.59 mg/dl (0.6-1.2) L 04/13/23 07:26 Est Cr Clr Drug Dosing 97.2 ml/min 04/13/23 07:26 Est GFR ( Amer) 137.6 ml/min 04/13/23 07:26 Est GFR (Non-Af Amer) 118.7 ml/min 04/13/23 07:26 BUN/Creatinine Ratio 10.2 (10-20) 04/13/23 07:26 Glucose 92 mg/dl (70-99(Fasting)) 04/13/23 07:26 POC Glucose 116 mg/dl (70-99) H 04/12/23 20:52 Calcium 8.8 mg/dl (8.6-10.3) 04/13/23 07:26 Magnesium 1.8 mg/dl (1.7-2.4) 04/12/23 20:55 Total Bilirubin 0.4 mg/dl (0.2-1.0) 04/12/23 20:55 AST 20 U/L (13-39) 04/12/23 20:55 ALT 19 U/L (7-52) 04/12/23 20:55 Alkaline Phosphatase 41 U/L (34-104) 04/12/23 20:55 Troponin I High Sens 2.8 pg/ml (0-14) 04/12/23 20:55 Total Protein 7.4 gm/dl (6.0-8.3) 04/12/23 20:55 Albumin 4.7 gm/dl (3.4-5.0) 04/12/23 20:55 Globulin 2.7 gm/dl (2.5-4.0) 04/12/23 20:55 Albumin/Globulin Ratio 1.7 (0.9-2) 04/12/23 20:55 Triglycerides 51 mg/dl (0-150) 04/13/23 07:26 Cholesterol 188 mg/dl (0-200) 04/13/23 07:26 LDL Cholesterol, Calc 123 mg/dl 04/13/23 07:26 VLDL Cholesterol, Calc 10 mg/dl (0-30) 04/13/23 07:26 HDL Cholesterol 55 mg/dl 04/13/23 07:26 Cholesterol/HDL Ratio 3.4 (0-5) 04/13/23 07:26 HCG, Qual Negative (Negative) 04/12/23 22:54 Urine Color Yellow 04/12/23 21:01 Urine Appearance Clear (Clear) 04/12/23 21:01 Urine pH 8.0 (4.5-7.5) H 04/12/23 21:01 Ur Specific Turrell 1.002 (1.000-1.030) 04/12/23 21:01 Urine Protein Negative (Negative) 04/12/23 21:01 Urine Glucose (UA) Negative (Negative) 04/12/23 21: Urine Ketones Negative (Negative) 04/12/23 21:01 Urine Blood Negative (Negative) 04/12/23 21:01 Urine Nitrite Negative (Negative) 04/12/23 21:01 Urine Bilirubin Negative (Negative) 04/12/23 21:01 Urine Urobilinogen Negative (Negative) 04/12/23 21:01 Ur Leukocyte Esterase Negative (Negative) 04/12/23 21:01 Urine Opiates Screen Neg (Neg) 04/12/23 21:01 Ur Methadone, Qual Neg (Neg) 04/12/23 21:01 Urine Barbiturates Neg (Neg) 04/12/23 21:01 Ur Phencyclidine (PCP) Neg (Neg) 04/12/23 21:01 U Amphetamin/Meth Scrn Neg (Neg) 04/12/23 21:01 MDMA (Ecstasy) Screen Neg (Neg) 04/12/23 21:01 U Benzodiazepines Scrn Neg (Neg) 04/12/23 21:01 Ur Cocaine Metabolite Neg (Neg) 04/12/23 21:01 U Marijuana (THC) Screen Neg (Neg) 04/12/23 21:01 Anaplasma Smear See Comment 04/12/23 22:54 Babesia Smear See Comment 04/12/23 22:54 Lyme Disease IgG Ab Negative (Negative) 04/12/23 22:54 Lyme Disease IgM Ab Negative (Negative) 04/12/23 22:54 SARS-CoV-2, RNA, NAAT NEGATIVE (NEGATIVE) 04/13/23 01:02 Blood Type A Positive 04/12/23 22:54 Antibody Screen NEGATIVE 04/12/23 22:54 Impressions Chest X-Ray 04/12/23 21:01 XR chest 1V portable CLINICAL HISTORY: stroke alert COMPARISON STUDY: Chest radiograph November 23, 2022. FINDINGS: Lung volumes are normal. Lungs are clear. There is no pneumothorax or pleural effusion. Cardiac size is normal. Mediastinal contours are normal. There is no evidence for pulmonary edema. IMPRESSION: No acute cardiopulmonary findings. ACT 112: Negative or not required by law. Electronically signed by: Adryan Casey M.D. 04/13/2023 6:[address] 04/12/23 21:01 Exam(s): CT HEAD Without Contrast EXAM: CT Head Without Intravenous Contrast CLINICAL HISTORY: Reason for exam: Neuro deficit, acute, stroke suspected. TECHNIQUE: Axial computed tomography images of the head/brain without intravenous contrast. CTDI is 38.9 mGy and DLP is 547.75 mGy-cm. Automated exposure control was utilized for the study. A dose lowering technique was utilized adhering to the principles of ALARA. COMPARISON: CT head on 01/25/2023 FINDINGS: Brain: No acute infarct or hemorrhage. No extra-axial fluid collection. No mass effect or midline shift. Ventricles and sulci: Normal. No ventriculomegaly or intraventricular hemorrhage. Bones: Normal. No bony lesion or acute fracture. Subcutaneous tissues: Normal. Sinuses: Mild to moderate mucosal thickening in right greater than left ethmoid air cells and frontal sinuses. Mastoid air cells: Normal. Orbits: Grossly unremarkable. IMPRESSION: No acute intracranial abnormality. Electronically signed by: Rafael Gaxiola M.D. 04/12/23 21:33 PM Head CTA 04/12/23 21:45 Exam(s): CTA HEAD With Contrast IV Amt: 120 ml optiray 320 EXAM: CT Angiography Head With Intravenous Contrast CLINICAL HISTORY: Reason for exam: neuro deficit, acute stroke suspected. TECHNIQUE: Axial computed tomographic angiography images of the head with intravenous contrast. Automated exposure control was utilized for the study. A dose lowering technique was utilized adhering to the principles of ALARA. MIP reconstructed images were created and reviewed. CONTRAST: Patient received 120 ml optiray 320 of IV contrast COMPARISON: No relevant prior studies available. FINDINGS: Right internal carotid artery: No acute findings. Intracranial segment is patent with no significant stenosis. No aneurysm. Right anterior cerebral artery: Unremarkable. No occlusion or significant stenosis. No aneurysm. Right middle cerebral artery: Unremarkable. No occlusion or significant stenosis. No aneurysm. Right posterior cerebral artery: Unremarkable. No occlusion or significant stenosis. No aneurysm. Right vertebral artery: Unremarkable as visualized. Left internal carotid artery: No acute findings. Intracranial segment is patent with no significant stenosis. No aneurysm. Left anterior cerebral artery: Unremarkable. No occlusion or significant stenosis. No aneurysm. Left middle cerebral artery: Unremarkable. No occlusion or significant stenosis. No aneurysm. Left posterior cerebral artery: Unremarkable. No occlusion or significant stenosis. No aneurysm. Left vertebral artery: Unremarkable as visualized. Basilar artery: Unremarkable. No occlusion or significant stenosis. No aneurysm. IMPRESSION: Normal head CTA. Electronically signed by: Bo Villanueva MD 04/12/23 22:52 PM Neck CTA 04/12/23 21:45 Exam(s): CTA NECK With Contrast IV Amt: 120 ml optiay 320 EXAM: CT Angiography Neck With Intravenous Contrast CLINICAL HISTORY: Reason for exam: neuro deficit, acute stroke suspected. TECHNIQUE: Routine carotid CT angiography protocol was performed with intravenous contrast. NASCET criteria using the distal ICAs for comparison were used for evaluation of stenoses. Automated exposure control was utilized for the study. A dose lowering technique was utilized adhering to the principles of ALARA. MIP reconstructed images were created and reviewed. CONTRAST: Patient received 120 ml optiay 320 of IV contrast COMPARISON: None. FINDINGS: VASCULATURE: Right common carotid artery: Unremarkable. No occlusion or significant stenosis. No dissection. Right internal carotid artery: Unremarkable. Extracranial segment is patent with no occlusion or significant stenosis. No dissection. Right external carotid artery: Unremarkable. No occlusion. Right vertebral artery: Unremarkable. No occlusion or significant stenosis. No dissection. Left common carotid artery: Unremarkable. No occlusion or significant stenosis. No dissection. Left internal carotid artery: Unremarkable. Extracranial segment is patent with no occlusion or significant stenosis. No dissection. Left external carotid artery: Unremarkable. No occlusion. Left vertebral artery: Unremarkable. No occlusion or significant stenosis. No dissection. NECK: Bones/joints: Unremarkable. Soft tissues: Unremarkable. Lung apices: Clear. CAROTID STENOSIS REFERENCE USING NASCET CRITERIA: % ICA stenosis = (1 - narrowest ICA diameter/diameter of distal cervical ICA) x 100. Mild - <50% stenosis. Moderate - 50-69% stenosis. Severe - 70-94% stenosis. Near occlusion - 95-99% stenosis. Occluded - 100% stenosis. IMPRESSION: Negative CTA neck. Electronically signed by: Bo Villanueva MD 04/12/23 22:54 PM Brain MRI 04/13/23 01:56 Exam(s): MRI HEAD W/WO Contrast IV Amt: 6.5cc gadavist EXAM: MR Head Without and With Intravenous Contrast CLINICAL HISTORY: Reason for exam: powell, tia sx. TECHNIQUE: Magnetic resonance images of the head/brain without and with intravenous contrast in multiple planes. CONTRAST: Patient received 6.5cc gadavist of IV contrast COMPARISON: CT head performed 04/12/23 FINDINGS: Brain: Few foci of increased T2/FLAIR signal within the periventricular and juxtacortical white matter, nonspecific in a patient this age. No hemorrhage. No acute infarct. No abnormal enhancement. No midline shift. Ventricles: Unremarkable. No ventriculomegaly. Bones/joints: Unremarkable. Sinuses: Unremarkable as visualized. No acute sinusitis. Mastoid air cells: Unremarkable as visualized. No mastoid effusion. Orbits: Unremarkable as visualized. IMPRESSION: Few foci of increased T2/FLAIR signal within the periventricular and juxtacortical white matter, nonspecific in a patient this age. Findings have been reported in patients who suffer from migraine headaches, sequela from prior trauma/inflammation or demyelinating disease, amongst other etiologies. Electronically signed by: Addison Tabares M.D. 04/13/23 06:28 AM Ordered Studies 04/12/23 21:01 CT head/brain wo con Stat 04/12/23 21:45 CT angio head w con Stat CT angio neck with con Stat 04/13/23 01:56 MR brain wo/w con Stat Hospital Course (1) Headache: Complex migraine/migraine variant -MRI Brain:Few foci of increased T2/FLAIR signal within the periventricular and juxtacortical white matter, nonspecific in a patient this age. Findings have been reported in patients who suffer from migraine headaches, sequela from prior trauma/inflammation or demyelinating disease, amongst other etiologies. --Neck CTA:Negative CTA neck. --Head CTA:Normal head CTA. 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 with corporate giving manager as outpatient Offered Plaquenil previously, patient currently prefers no medication H/O Myocarditis Continue colchicine Has scheduled follow-up appointment with cardiology as outpatient DVT Px: Heparin SQ Code Status Full code Disposition Home Total Time Total Time Spent Total Time Spent (In Minutes): 45 minutes Discharge Plan Discharge Items Patient Disposition: Home - Self-Care Reason For Visit: TIA, POWELL Discharge Diagnosis: Complex migraine Strokelike symptoms Activity: Per Instructions section Exercise/Sports: Gradually increase as tolerated Non-emergency contact: Primary Care Provider and Neurologist Call non-emergency contact if: you have any medication questions, your symptoms worsen, your pain is concerning for you and you have a fever Follow-up/Referrals: Bran Vuong MD [Primary Care Provider] - Diet: Regular Addtl Attending Provider Instructions: Follow-up with your primary care physician Dr. Vuong on 04/19/23 at 10:20AM Follow-up with your neurologist Mirian Mojica PA-C on June 11, 2023 at 11:20 AM ---Your ECHO results, Serological test for Tick borne diseases are pending at the time of discharge. Follow up with your physician for results --Start taking Magnesium and Vitamin B2 supplements as recommended by your neurologist Seek immediate medical attention if your symptoms reoccur or worsen Please take all medications as instructed on discharge list below. Please call if you have any questions or problems. You can reach a [facility] hospitalist on duty at [facility] 24 hours a day by calling [phone] Risk Factors for Stroke: You can reduce your chances of stroke by working with your medical provider to adopt a healthy lifestyle. Some specific ways to lower your chance of stroke are: * If you are a smoker, now is the time to stop smoking cigarettes * If you are diabetic, improve the control of your blood sugars * Avoid excessive amounts of alcohol * Control high blood pressure * Lose weight if you are overweight * Be sure to lead an active lifestyle * Eat a healthy diet low in salt, cholesterol and fat You should know about other risk factors for stroke that you are unable to control. These include: * Age 55 years or older * Male gender * Certain racial groups: , or / * Family History of Stroke, Mini stroke or Heart Attack * Sickle Cell Disease Follow Up: It is important for you to keep your follow up appointments with your medical provider. Who to Call and When: Medical Emergencies: Call 911 immediately if you experience any of the following warning signs and symptoms of Stroke: * Sudden numbness or weakness of the face, arm or leg, especially on one side of the body * Sudden confusion, trouble speaking or understanding * Sudden trouble seeing in one or both eyes * Sudden trouble walking, dizziness, loss of balance or coordination * Sudden severe headache with no cause Do not delay calling 911 if you experience any warning signs or symptoms of a stroke. Delay in seeking medical attention may affect what treatments can be given to you. . Pending Studies at Discharge: Yes Studies:: ECHO results, Serological test for Tick borne diseases Stand-Alone Forms: [facility], Smoking Cessation Medications and DC Order Prescriptions: New riboflavin (vitamin B2) 400 mg tablet 400 mg PO DAILY Qty: 30 2RF magnesium oxide 400 mg magnesium capsule 400 mg PO DAILY Qty: 30 2RF Continued ibuprofen [Advil] 200 mg Tablet 200 mg PO DAILY PRN (Reason: Headache) calcium carbonate 500 mg calcium (1,250 mg) Tablet,Chewable 500 mg PO HS PRN (Reason: Dyspepsia) baclofen 10 mg tablet 10 mg PO TID pantoprazole 40 mg tablet,delayed release (DR/EC) 40 mg PO DAILY colchicine 0.6 mg tablet 0.6 mg PO BID Discharge Orders: Discharge Order (Routine); Ordered 04/13/23 Ordered By: Scott Caro Admission Data Admit Date/Time: 04/13/23 01:53 Attending Provider: Scott Caro Admit Provider: Good Rosado Primary Care Provider: Bran Vuong Other Providers: Good Rosado
--- NOTE | 2023-04-13 15:37 | Electrocardiogram Report ---
Test Reason : Blood Pressure : / mmHG Vent. Rate : 099 BPM Atrial Rate : 099 BPM P-R Int : 124 ms QRS Dur : 088 ms QT Int : 340 ms P-R-T Axes : 075 063 052 degrees QTc Int : 436 ms Normal sinus rhythm Nonspecific ST abnormality Abnormal ECG When compared with ECG of 22-OCT-2022 06:02, No significant change was found Confirmed by Ramon Luis ([id number]) on 04/13/2023 3:36:50 PM Referred By: REFERRED SELF Confirmed By:Ramon Luis
--- NOTE | 2023-04-13 15:49 | Electrocardiogram Report ---
Test Reason : Blood Pressure : / mmHG Vent. Rate : 082 BPM Atrial Rate : 082 BPM P-R Int : 130 ms QRS Dur : 088 ms QT Int : 382 ms P-R-T Axes : 105 142 153 degrees QTc Int : 446 ms Suspect arm lead reversal, interpretation assumes no reversal Normal sinus rhythm Right axis deviation Abnormal ECG When compared with ECG of 22-OCT-2022 06:02, QRS axis Shifted right ST no longer depressed in Anterior leads Confirmed by Ramon Luis ([id number]) on 04/13/2023 3:49:27 PM Referred By: REFERRED SELF Confirmed By:Ramon Luis
[2023-04-14] MEDS ORDERED: ASPIRIN 81 MG ECTAB PO SCH (09:00)
[2023-04-16 15:52] LABS: Babesia microti DNA Not Detected (Not Detected)
== END 2023-04-13 13:15 | disposition home or self-care (01) ==
LOC: 2W 20:33 → ED 20:33 → 2W 04-13 02:53